=== PATIENT | female | born 1960 | race Caucasian/White ===

== ENCOUNTER 2016-09-23 07:04 | Day surgery (SDC) | payer MEDICARE, OTHER ==
[2016-09-21 09:26] VITALS: BMI 28.8
[~2016-09-23 07:04] MED LIST: LACTATED RINGERS 1,000 ML IV SCH
[2016-09-23 07:17] VITALS: TEMP 97.4
[2016-09-23] MEDS ORDERED: LIDOCAINE 1% INJ 10MG/ML (20 ML MDV) ONE (07:34)
[2016-09-23] MEDS ORDERED: PROPOFOL 10 MG/ML 20 ML VIAL IV ONE (07:34)
--- NOTE | 2016-09-23 07:47 | P.GSHP ---
History of Present Illness H&P Date: 09/23/16 Chief Complaint: GERD, dysphagia Is a 48-year-old female referred from Dr. George Wesley. Patient has had issues GERD and dysphagia. He was a presents EGD - Constitutional Constitutional: Reports as per HPI Past Medical History Past Medical History: Hypertension, Osteoarthritis (OA) Additional Past Medical History / Comment(s): HX OF DIVERTICULITIS ( HOSPITALIZED APR 2016), SCOLIOSIS, HX OF FX NECK (1989) WITH PINCHED NERVE WITH NUMBNESS IN HANDS & OCCASIONAL WEAKNESS IN HANDS., HAVING DIFFICULTY SWALLOWING. , STATES BLOOD BLISTER ON HER ARM. , STATES SNORES HEAVILY. History of Any Multi-Drug Resistant Organisms: None Reported Additional Past Surgical History / Comment(s): TUBAL RECONSTRUCTION (1985) Past Anesthesia/Blood Transfusion Reactions: No Reported Reaction Past Psychological History: No Psychological Hx Reported Smoking Status: Current every day smoker Past Alcohol Use History: Occasional Additional Past Alcohol Use History / Comment(s): SMOKES <1/2 PPD. SMOKED FOR APPROX 15 YEARS. QUIT FOR 20 YRS AND RESTARTED. DRINKS A 6 PACK WEEKLY. Past Drug Use History: None Reported - Past Family History Father Family Medical History: Cancer Additional Family Medical History / Comment(s): LUNG CANCER Medications and Allergies Home Medications Medication Instructions Recorded Confirmed Type Lisinopril [Zestril] 10 mg PO DAILY 09/21/16 09/23/16 History Allergies Allergy/AdvReac Type Severity Reaction Status Date / Time aspirin Allergy Unknown Swelling, Verified 09/21/16 09:12 Itching Penicillins Allergy Unknown STATES SHE Verified 09/21/16 09:12 FEELS WORSE. Surgical - Exam Vital Signs Temp Pulse Resp BP Pulse Ox 97.4 F L 75 14 115/80 96 09/23/16 07:16 09/23/16 07:16 09/23/16 07:16 09/23/16 07:16 09/23/16 07:16 - General well developed, no distress - Eyes PERRL - ENT normal pinna - Neck no masses - Respiratory normal expansion - Cardiovascular Rhythm: regular - Abdomen Abdomen: soft, non tender Assessment and Plan Plan: GERD, dysphagia. We'll perform EGD
--- NOTE | 2016-09-23 08:02 | P.OP ---
Date of Procedure: 09/23/16 Preoperative Diagnosis: GERD Dysphagia Postoperative Diagnosis: Antral gastritis Hiatal hernia Minimal esophagitis Procedure(s) Performed: EGD Anesthesia: MAC Surgeon: nAurag Simpson Pathology: other (Antrum, esophagus) Condition: stable Disposition: PACU Description of Procedure: The patient's placed on the endoscopy table in the lateral position. She received IV sedation. The gastroscope some placed oropharynx and passed into the esophagus and into the stomach. The scope was then placed through the pylorus. The first and second portion of the duodenum appeared normal. Scope was then brought back the antrum and this appeared minimally inflamed and a biopsies was performed. The scope was then retroflexed and there was a moderate size hiatal hernia. The GE junction was at 47 is. The distal esophagus appeared minimally inflamed a biopsies performed. The proximal esophagus appeared normal. Scope was withdrawn for patient.
[2016-09-23 08:08] VITALS: RESP 16
[2016-09-23 09:00] VITALS: BP 104/69; PULSE 74
== END 2016-09-23 08:58 | disposition home or self-care (01) ==
LOC: ORWHC2ENDO 07:04
PROVIDERS: ATTEND Surgery
DX: K29.70 Gastritis, unspecified, without bleeding (principal); K44.9 Diaphragmatic hernia without obstruction or gangrene; K20.9 Esophagitis, unspecified; I10 Essential (primary) hypertension; F17.200 Nicotine dependence, unspecified, uncomplicated; Z79.899 Other long term (current) drug therapy; Z88.0 Allergy status to penicillin; Z88.8 Allergy status to other drugs, medicaments and biological substances
CPT/HCPCS: 88305; 88342; 43239; J2001; J2704; 99153

== ENCOUNTER → 2016-11-17 | Outpatient (CLI) | payer MEDICARE, OTHER ==
[~2016-11-17] MED LIST changes: +DOBUTamine DRIP for NUC MED 500 MG in DEXTROSE/WATER 1 250ML.BAG IV ONE; +DOBUTamine DRIP for NUC MED 500 MG/250 ML BAG IV ONE; -LACTATED RINGERS 1,000 ML IV SCH
--- NOTE | 2016-11-17 11:41 | ECHOF ---
Referral Reason:I10 htn E78.2 mixed hyperlipiedmia MEASUREMENTS -------- HEIGHT: 157.5 cm WEIGHT: 68.0 kg BP: 96/65 RVIDd: 3.0 cm (< 3.3) IVSd: 1.1 cm (0.6 - 1.1) LVIDd: 4.5 cm (3.9 - 5.3) LVPWd: 1.2 cm (0.6 - 1.1) IVSs: 1.7 cm LVIDs: 2.8 cm LVPWs: 1.5 cm LA Diam: 3.1 cm (2.7 - 3.8) LAESV Index (A-L): 12.85 ml/m Ao Diam: 2.7 cm (2.0 - 3.7) AV Cusp: 1.9 cm (1.5 - 2.6) MV EXCURSION: 15.792 mm (> 18.000) MV EF SLOPE: 92 mm/s (70 - 150) EPSS: 0.2 cm MV E Andrew: 0.94 m/s MV DecT: 167 ms MV A Andrew: 0.89 m/s MV E/A Ratio: 1.07 RAP: 5.00 mmHg RVSP: 21.98 mmHg FINDINGS -------- Resting bradycardia (HR<60bpm). This was a technically good study. The left ventricular size is normal. There is borderline concentric left ventricular hypertrophy. Overall left ventricular systolic function is normal with, an EF between 60 - 65 %. The right ventricle is normal in size. Normal LA size by volume 22+/-6 ml/m2. The right atrium is normal in size. The aortic valve is trileaflet and appears structurally normal. Normal appearing mitral valve. No mitral regurgitation. Mild tricuspid regurgitation present. Right ventricular systolic pressure is normal at < 35 mmHg. The pulmonic valve is normal. The aortic root size is normal. Normal inferior vena cava with normal inspiratory collapse consistent with estimated right atrial pressure of 5 mmHg. There is no pericardial effusion. CONCLUSIONS -------- 1. Resting bradycardia (HR<60bpm). 2. Mild tricuspid regurgitation present. 3. Right ventricular systolic pressure is normal at < 35 mmHg. 4. The pulmonic valve is normal. 5. The aortic root size is normal. 6. Normal inferior vena cava with normal inspiratory collapse consistent with estimated right atrial pressure of 5 mmHg. 7. There is no pericardial effusion. 8. This was a technically good study. 9. The left ventricular size is normal. 10. There is borderline concentric left ventricular hypertrophy. 11. Overall left ventricular systolic function is normal with, an EF between 60 - 65 %. 12. The right ventricle is normal in size. 13. Normal LA size by volume 22+/-6 ml/m2. 14. The aortic valve is trileaflet and appears structurally normal. 15. Normal appearing mitral valve. WOOD TECHNOLOGIST: Anny Grewal RDCS
--- NOTE | 2016-11-17 12:49 | ECHOS ---
DATE OF SERVICE: 11/17/2016 AGE: 56Y SEX: F HT: 5'-1-/2" WT: 150 lbs. Protocol Les: Others: Dobutamine Stress Echo Stage: 4 Dur. of Exercise: 10:00 *Heart Rate Blood Pressure *Rest: 58 Rest: 96/65 * *Max. Achieved: 138 Maximum BP: 170/82 85% PMHR: - 100% PMHR: 162 *METS: - INDICATIONS: Hypertension. MEDICATIONS: Lisinopril, Prilosec, Lipitor. Patient was given dobutamine infusion according to the standard protocol. Peak heart rate of 138 was achieved. Maximum blood pressure of 170/82 mmHg is noted. Resting EKG shows normal sinus rhythm with normal NH interval and QRS duration and normal ST-T waves. No ST segment depression suggestive of ischemia is noted. Baseline echocardiographic images reveal a normal left ventricular chamber size with normal left ventricular systolic function at the peak dose of dobutamine infusion, normal increase in the wall thickness and contractility is noted. FINAL IMPRESSION: 1. This dobutamine stress echocardiographic study is negative for stress-induced ischemia. 2. EKG portion of the stress test is not suggestive of ischemia on patient's exercise.
== END ==
LOC: RADECHMAIN 08:22
PROVIDERS: ATTEND Family Medicine
DX: R00.1 Bradycardia, unspecified (principal); I07.1 Rheumatic tricuspid insufficiency; I51.7 Cardiomegaly; I10 Essential (primary) hypertension; E78.2 Mixed hyperlipidemia; Z68.24 Body mass index [BMI] 24.0-24.9, adult
CPT/HCPCS: 93017; 93306; 93350

== ENCOUNTER 2017-02-20 06:35 | Day surgery (SDC) | payer MEDICARE, OTHER ==
[2017-02-09 14:34] VITALS: BMI 27.8
[~2017-02-20 06:35] MED LIST changes: +DEXAMETHASONE SOD PHOSPHATE 10 MG/ML 1 ML VIAL IV ONE; -DOBUTamine DRIP for NUC MED 500 MG in DEXTROSE/WATER 1 250ML.BAG IV ONE; -DOBUTamine DRIP for NUC MED 500 MG/250 ML BAG IV ONE; +HEPARIN SODIUM,PORCINE 5,000 UNIT/ML 1 ML VIAL SQ ONE; +HYDROmorphone 1 MG/ML 1 ML SYRINGE IVP PRN; +LACTATED RINGERS 1,000 ML IV SCH; +LIDOCAINE 1% 20 ML VIAL (10MG/ML) FOR IV START INTRADERMA PRN; +SCOPOLAMINE 1.5MG/72HR PATCH TRANSDERM ONE; +ceFAZolin 2 GM in SODIUM CHLORIDE 0.9% 100 ML IVPB ONE
[2017-02-20] MEDS: ONDANSETRON 4 MG/2 ML VIAL IVP ONE ×2 (06:57→08:55)
--- NOTE | 2017-02-20 07:37 | P.GSHP ---
History of Present Illness H&P Date: 02/20/17 Chief Complaint: GERD This a 56-year-old female referred from Dr. Tania Wesley. The patient has had long-standing problems with reflux esophagitis. The patient underwent recent EGD is found have evidence of esophagitis. Patient has been well informed on the procedure of laparoscopic Jackie fundoplication. The patient is aware the risk of the conversion to the open procedure, risk of injury to the stomach, liver and spleen. The patient is also a risk of recurrent GERD and dysphagia symptoms. The patient understands there is a postoperative diet of full liquids for 2 weeks after surgery. Past Medical History Past Medical History: GERD/Reflux, Hyperlipidemia, Hypertension, Osteoarthritis (OA) Additional Past Medical History / Comment(s): STATES DYSPHAGIA, HX OF DIVERTICULITIS (HOSPITALIZED APR 2016), SCOLIOSIS, HX OF FX NECK (1989) WITH PINCHED NERVE WITH NUMBNESS IN HANDS & OCCASIONAL WEAKNESS IN HANDS. STATES HAS TORN LEFT SHOULDER ROTATOR CUFF History of Any Multi-Drug Resistant Organisms: None Reported Additional Past Surgical History / Comment(s): TUBAL RECONSTRUCTION (1985), EGD , COLONOSCOPY Past Anesthesia/Blood Transfusion Reactions: No Reported Reaction Past Psychological History: No Psychological Hx Reported Smoking Status: Never smoker Past Alcohol Use History: Heavy Additional Past Alcohol Use History / Comment(s): SMOKES <1/2 PPD. SMOKED FOR APPROX 15 YEARS. QUIT FOR 20 YRS AND RESTARTED. Past Drug Use History: Marijuana Additional Drug Use History / Comment(s): OCCASIONAL USE, INSTRUCED TO HOLD 24 HRS PRIOR TO PROCEDURE - Past Family History Father Family Medical History: Cancer Additional Family Medical History / Comment(s): LUNG CANCER Medications and Allergies Home Medications Medication Instructions Recorded Confirmed Type Lisinopril [Zestril] 10 mg PO DAILY 09/21/16 02/20/17 History Allergies Allergy/AdvReac Type Severity Reaction Status Date / Time aspirin Allergy Unknown Swelling, Verified 02/20/17 06:49 Itching Penicillins Allergy Unknown STATES SHE Verified 02/20/17 06:49 FEELS WORSE. Surgical - Exam Vital Signs Temp Pulse Resp BP Pulse Ox 98.3 F 78 16 131/75 98 02/20/17 06:48 02/20/17 06:48 02/20/17 06:48 02/20/17 06:48 02/20/17 06:48 - General well developed, no distress - Eyes PERRL - ENT normal pinna - Neck no masses - Respiratory normal expansion - Cardiovascular Rhythm: regular - Abdomen Abdomen: soft, non tender Assessment and Plan Plan: GERD. We'll perform laparoscopic Jackie fundoplication.
[2017-02-20] MEDS ORDERED: BUPIVACAIN-EPI 0.25%-1:200,000 30 ML VIAL SQ ONE (07:42)
[2017-02-20] MEDS ORDERED: fentaNYL (PF) 50 MCG/ML 2 ML AMP ONE (07:46)
[2017-02-20] MEDS ORDERED: ePHEDrine 50 MG/ML 1 ML AMP ONE (07:46)
[2017-02-20] MEDS ORDERED: NEOSTIGMINE 1 MG/ML 10 ML VIAL ONE (07:46)
[2017-02-20] MEDS ORDERED: LIDOCAINE 1% INJ 10MG/ML (20 ML MDV) ONE (07:46)
[2017-02-20] MEDS ORDERED: ROCURONIUM BROMIDE 10 MG/ML 10 ML VIAL IV ONE (07:46)
[2017-02-20] MEDS ORDERED: SUCCINYLCHOLINE CHLORIDE 100 MG/5 ML SYR IV ONE (07:46)
[2017-02-20] MEDS ORDERED: PROPOFOL 10 MG/ML 20 ML VIAL IV ONE (07:46)
[2017-02-20] MEDS ORDERED: GLYCOPYRROLATE 0.2 MG/ML 2 ML VIAL ONE (07:46)
[2017-02-20] MEDS ORDERED: MIDAZOLAM 2 MG/2 ML VIAL ONE (07:46)
--- NOTE | 2017-02-20 08:46 | P.OP ---
Date of Procedure: 02/20/17 Preoperative Diagnosis: GERD Postoperative Diagnosis: GERD Procedure(s) Performed: Laparoscopic Jackie fundoplication Implants: Anesthesia: NAYANA Surgeon: Anurag Simpson Estimated Blood Loss (ml): 5 Pathology: none sent Condition: stable Disposition: PACU Indications for Procedure: Operative Findings: Description of Procedure: The patient was placed on the operating table in the supine position. The patient received general anesthesia. And was placed in dorsal lithotomy position. The patient was prepped and draped in the usual sterile fashion. The skin incision sites were anesthetized with 1% local Xylocaine. The skin was incised in the left periumbilical area and then using a blade less 5 mm trocar under direct visualization panel cavity was entered. After adequate insufflation the laparoscope was then placed into the peritoneal cavity. Next a 5 mm trochars placed in the right epigastric position. Another 5 millimeter trocar the right lateral position. Another 5 millimeter trocar in the left lateral position a 5 mm trocar is placed in the left epigastric position. And then the initial 5 mm trocar was exchanged for a 10 mm trocar. The left lateral lobe liver was retracted. The hernia was seen. The crural defect was then dissected using the Harmonic scissors device. A 360 crural dissection was performed the esophagus stomach was reduced back into the peritoneal Cavity. The crural defect was then closed using 2-0 Ethibond suture. Next the fundus of the stomach was mobilized using the Paragon scissors device. and then a 58-Irish bougie dilator was placed oropharynx passed into the esophagus and stomach the fundal plication wrap was then performed by grasping the fundus posteriorly and bringing it around the esophagus and stomach fundoplication was then performed using 2-0 Ethibond suture. Care was taken that the fundal location rested over top of the intra-abdominal esophagus. There was no injury seen to the stomach or esophagus. The dilator was then withdrawn. The abdomen was irrigated there is no bleeding seen. The trochars were then withdrawn and then skin incision sites were closed using 3-0 Monocryl suture Steri-Strips are applied. Patient thought procedure well and sent to recovery room in stable condition.
[2017-02-20] MEDS ORDERED: KETOROLAC 30 MG/ML 1 ML VIAL IVP ONE (09:01)
[2017-02-20] MEDS: D5-0.45% NACL WITH KCL 20MEQ/L 1,000 ML IV SCH ×2 (11:26→18:42)
[2017-02-20] MEDS ORDERED: HYDROmorphone 1 MG/ML 1 ML SYRINGE IVP PRN (11:31)
[2017-02-20] MEDS: ENOXAPARIN 40 MG/0.4 ML SYRINGE SQ SCH (11:32)
--- NOTE | 2017-02-20 15:50 | FL ---
EXAMINATION TYPE: FL esophagus cervic/pharynx DATE OF EXAM ORDERED: 02/20/2017 3:26 PM HISTORY: Same day Abdulkadir fundoplication. COMPARISON: None. FINDINGS: The patient drank Omnipaque with ease. There is prompt egress of contrast from the esophag us into the stomach. The ligament of Treitz is in the normal location. There is no evidence of extrav asation or significant free air. IMPRESSION: STATUS POST SAME-DAY ABDULKADIR FUNDOPLICATION.
--- NOTE | 2017-02-20 19:58 | CONS ---
DATE OF CONSULTATION: REASON FOR CONSULTATION: Recommendations regarding antihypertensive medications and prevention of perioperative complications. The patient is a very pleasant 56-year-old female who came in for Jackie fundoplication. Patient underwent surgery. Patient is clinically doing well. The patient is still nauseous at this point of time. Patient does have a history of hypertension, blood pressure is low, which is expected around the perioperative time period, because of which I am holding her antihypertensive medication. The patient does not have any signs or symptoms of infection. Denies any cough or runny nose. Did not pass gas yet but has been burping at this time. REVIEW OF SYSTEMS: CARDIOVASCULAR: No chest pain, no orthopnea, no PND, no palpitations. PULMONARY: Denied any shortness of breath. No cough or hemoptysis. GASTROINTESTINAL: No diarrhea, nausea or vomiting. No abdominal pain. Normoactive bowel sounds. NEUROLOGIC: No headaches, no weakness, no numbness. PAST MEDICAL HISTORY: Gastroesophageal reflux disease, hyperlipidemia, hypertension, osteoarthritis. The patient does smoke a half pack per day. Denied any alcohol abuse. Occasional use of marijuana. FAMILY HISTORY: Significant for lung cancer. Home medications: 1. Lisinopril. 2. Acetaminophen. 3. Hydrocodone. 4. Docusate. ALLERGIES: ASPIRIN, PENICILLIN. PHYSICAL EXAMINATION: VITAL SIGNS: Temperature 97, pulse of 48, respiratory rate of 90, blood pressure 105/61, saturating at 95% on room air. GENERAL: The patient is alert and oriented x3, not in any acute distress. Well developed, well nourished. HEENT: Pupils are round and equally reacting to light. EOMI. No scleral icterus. No conjunctival pallor. Normocephalic, atraumatic. No pharyngeal erythema. No thyromegaly. CARDIOVASCULAR: S1 and S2 present. No murmurs, rubs, or gallops. PULMONARY: Chest is clear to auscultation, no wheezing or crackles. ABDOMEN: Soft, nontender, nondistended, normoactive bowel sounds. No palpable organomegaly. MUSCULOSKELETAL: No joint swelling or deformity. EXTREMITIES: No cyanosis, clubbing, or pedal edema. NEUROLOGICAL: Gross neurological examination did not reveal any focal deficits. SKIN: No rashes. LABORATORY DATA: None available. ASSESSMENT AND PLAN: 1. Status post fundoplication. Pain management and DVT prophylaxis per primary service. 2. Hypertension. Hold off lisinopril because of concern of perioperative hypotension, which is pretty common. Reassessment tomorrow before discharge to see if she can continue her lisinopril upon discharge. 3. Nicotine abuse. Counseling was provided regarding that. Thank you for letting me participate in this patient's care. Patient will be followed by Dr. Wesley from tomorrow.
[2017-02-21] MEDS: HYDROmorphone 1 MG/ML 1 ML SYRINGE IVP PRN ×2 (00:37→08:37)
[2017-02-21] MEDS: D5-0.45% NACL WITH KCL 20MEQ/L 1,000 ML IV SCH (02:47)
[2017-02-21 08:19] VITALS: BP 117/70; PULSE 64; RESP 19; TEMP 97
[2017-02-21] MEDS: ENOXAPARIN 40 MG/0.4 ML SYRINGE SQ SCH (08:37)
--- NOTE | 2017-02-21 09:27 | P.DS ---
Providers Date of admission: 02/20/2017 Expected date of discharge: 02/21/17 Attending physician: Anurag Simpson Consults: 02/20/17 08:46 Consult Physician Routine Consulting Provider: Ella Wesley Consult Reason/Comments: Medical management Do you want consulting provider notified?: Yes Primary care physician: [place] [facility] Course: This a 48-year-old female who underwent laparoscopic Jackie fundoplication on . Patient did well postoperative. Please see chart for details. Procedures: Laparoscopic Jackie fundal plication Patient Condition at Discharge: Good Plan - Discharge Summary New Discharge Prescriptions: New Docusate [Colace] 100 mg PO BID #20 capsule HYDROcodone/APAP 7.5-325MG [[place] 7.5] 1 each PO Q4H PRN #60 tab PRN Reason: Pain No Action Lisinopril [Zestril] 10 mg PO DAILY Discharge Medication List Lisinopril [Zestril] 10 mg PO DAILY 09/21/16 [History] Docusate [Colace] 100 mg PO BID #20 capsule 02/20/17 [Rx] HYDROcodone/APAP 7.5-325MG [[place] 7.5] 1 each PO Q4H PRN #60 tab 02/20/17 [Rx] Follow up Appointment(s)/Referral(s): Anurag Simpson MD [STAFF PHYSICIAN] - 1 Week Patient Instructions/Handouts: *Surgery [facility] - Scopalamine Patch Instructions
[2017-02-21] MEDS ORDERED: HYDROcodone/APAP 7.5-325MG 1 EACH TAB PO PRN (11:55)
--- NOTE | 2017-02-21 16:59 | PN ---
DATE OF SERVICE: 02/21/2017 This 56-year-old woman who was admitted after fundoplication for GERD is being closely monitored. No chest pain or palpitation. No fever. On exam, alert and oriented x3. Pulse is 66, blood pressure 116/84, respirations 18, temperature 97.6, pulse ox 98% on room air. HEENT: Conjunctivae normal. NECK: No jugular venous distention. CARDIOVASCULAR: S1, S2 muffled. RESPIRATORY: Breath sounds diminished at the bases. No rhonchi. No crackles. ABDOMEN: Soft, status post surgery. LEGS: No edema. No swelling. CENTRAL NERVOUS SYSTEM: No focal deficits. LABS: Not available. ASSESSMENT: 1. Status post laparoscopic Jackie fundoplication for gastroesophageal reflux disease. 2. Hypertension, history. 3. History of nicotine dependence. 4. History of gastroesophageal reflux disease. 5. Hyperlipidemia. 6. History of degenerative joint disease. RECOMMENDATIONS AND DISCUSSION: In this 56-year-old woman who presented after surgery at this time, I recommend to continue current medications. Continue symptomatic treatment. I recommend to resuming the home medications. Follow closely with Dr. Ortiz who is the primary physician. The rest of the recommendations per surgery. Further recommendations to follow. Thank you Dr. Simpson.
== END 2017-02-21 13:15 | disposition home or self-care (01) ==
LOC: OR 06:35 → 6PED 08:51 → OR 02-21 13:15
PROVIDERS: ATTEND Surgery
DX: K21.0 Gastro-esophageal reflux disease with esophagitis (principal); E78.5 Hyperlipidemia, unspecified; I10 Essential (primary) hypertension; F17.200 Nicotine dependence, unspecified, uncomplicated; Z88.6 Allergy status to analgesic agent; Z88.0 Allergy status to penicillin; Z79.899 Other long term (current) drug therapy
CPT/HCPCS: 74210; 43280; J2250; J1644; J1100; J2710; Q9967; J0690; J2405; J2001; J1650 ×2; J3010; J1885; J1170 ×2; J0330; J2704

== ENCOUNTER 2017-03-05 11:17 | Inpatient (IN) | payer MEDICARE, OTHER ==
[2017-03-05] MEDS ORDERED: SODIUM CHLORIDE 0.9% 1,000 ML IV STA ×2 (12:02)
[2017-03-05] MEDS ORDERED: NITROGLYCERIN SL TABS 0.4 MG TAB SUBLINGUAL STA (12:02)
[2017-03-05] MEDS ORDERED: IOHEXOL 350 MG/ML 25 ML BOTTLE (ORAL USE) PO PRN (12:06)
[2017-03-05] MEDS ORDERED: FAMOTIDINE 20 MG/2 ML VIAL IV STA (12:06)
[2017-03-05] MEDS ORDERED: ONDANSETRON 4 MG/2 ML VIAL IVP STA (12:06)
[2017-03-05] MEDS ORDERED: HYDROmorphone 1 MG/ML 1 ML SYRINGE IVP STA ×2 (12:06→14:29)
[2017-03-05] MEDS ORDERED: RX INFO: IV CONTRAST WAS GIVEN 1 EACH MISC MISCELLANE PRN (12:06)
--- NOTE | 2017-03-05 12:13 | ED ---
General Adult HPI - General Chief complaint: Chest Pain Stated complaint: chest pain,nausea Time Seen by Provider: 03/05/17 11:49 Source: patient, RN notes reviewed Mode of arrival: ambulatory Limitations: no limitations - History of Present Illness Initial comments: Patient is a pleasant 56-year-old female presenting to the emergency Department with left-sided chest discomfort. Patient did have a Jackie fundoplication done 2 weeks ago. Patient started with chest discomfort last night and has progressed since that time. Discomfort is mostly left lateral lower chest and posterior. There is some beneath the left breast as well. No significant abdominal discomfort. Patient has not yet tolerated solid foods since her surgery. Patient is having nausea without emesis. Patient has difficulty swallowing pills. - Related Data Home Medications Medication Instructions Recorded Confirmed Lisinopril [Zestril] 10 mg PO DAILY 09/21/16 03/05/17 HYDROcodone/APAP 7.5-325MG [[place] 1 tab PO Q4H PRN 03/05/17 03/05/17 7.5] Allergies Allergy/AdvReac Type Severity Reaction Status Date / Time aspirin Allergy Unknown Swelling, Verified 03/05/17 11:36 Itching Penicillins Allergy Unknown STATES SHE Verified 03/05/17 11:36 FEELS WORSE. Review of Systems ROS Statement: Those systems with pertinent positive or pertinent negative responses have been documented in the HPI. ROS Other: All systems not noted in ROS Statement are negative. Constitutional: Denies: fever Eyes: Denies: eye pain ENT: Denies: ear pain Respiratory: Denies: cough, dyspnea Cardiovascular: Reports: chest pain Endocrine: Denies: fatigue Gastrointestinal: Reports: nausea. Denies: abdominal pain Genitourinary: Denies: urgency Musculoskeletal: Reports: back pain (Left thorax) Skin: Denies: rash Past Medical History Past Medical History: GERD/Reflux, Hyperlipidemia, Hypertension, Osteoarthritis (OA) Additional Past Medical History / Comment(s): STATES DYSPHAGIA, HX OF DIVERTICULITIS (HOSPITALIZED APR 2016), SCOLIOSIS, HX OF FX NECK (1989) WITH PINCHED NERVE WITH NUMBNESS IN HANDS & OCCASIONAL WEAKNESS IN HANDS. STATES HAS TORN LEFT SHOULDER ROTATOR CUFF History of Any Multi-Drug Resistant Organisms: None Reported Past Surgical History: Hernia Repair Additional Past Surgical History / Comment(s): TUBAL RECONSTRUCTION (1985), EGD , COLONOSCOPY, HIATAL HERNIA REPAIR 2017 Past Anesthesia/Blood Transfusion Reactions: No Reported Reaction Past Psychological History: No Psychological Hx Reported Smoking Status: Current every day smoker Past Alcohol Use History: Heavy Past Drug Use History: Marijuana - Past Family History Father Family Medical History: Cancer Additional Family Medical History / Comment(s): LUNG CANCER General Exam Limitations: no limitations General appearance: alert, other (Patient does appear uncomfortable) Head exam: Present: atraumatic Eye exam: Present: normal appearance, PERRL ENT exam: Present: normal oropharynx Neck exam: Present: normal inspection Respiratory exam: Present: normal lung sounds bilaterally, chest wall tenderness (No significant anterior tenderness. There is lateral and posterior rib tenderness.) Cardiovascular Exam: Present: regular rate, normal rhythm Expanded Peripheral pulses: 2+: Dorsalis Pedis (R), Dorsalis Pedis (L) GI/Abdominal exam: Present: soft, normal bowel sounds. Absent: distended, tenderness, guarding, rebound, rigid, pulsatile mass Extremities exam: Present: normal inspection Back exam: Present: tenderness (Left lower ribs) Neurological exam: Present: alert Psychiatric exam: Present: normal affect, normal mood Skin exam: Present: normal color Course Vital Signs 03/05/17 03/05/17 03/05/17 11:33 11:39 12:25 Temperature 97.5 F L Pulse Rate 64 64 59 L Respiratory 20 22 22 Rate Blood Pressure 212/109 185/110 172/99 O2 Sat by Pulse 100 100 100 Oximetry 03/05/17 03/05/17 03/05/17 13:33 13:57 15:02 Temperature 97.4 F L Pulse Rate 62 56 L Respiratory 20 15 Rate Blood Pressure 189/89 203/99 158/94 O2 Sat by Pulse 100 92 L Oximetry EKG Findings - EKG Comments: EKG Findings:: Normal sinus rhythm 61. AK 140. QRS 84. QT 454. QTC 457. Normal axis. Normal QRS. Normal ST-T. Medical Decision Making - Medical Decision Making Patient reexamined and having continued discomfort. Case was discussed with Dr. Phelan, covering for Dr. Villar who feels symptoms are more medical. Case discussed with Dr. walker, who will admit for hospital call. Patient believes she has had Toradol before without problems. - Lab Data Result diagrams: 03/05/17 11:45 03/05/17 11:45 Lab Results 03/05/17 03/05/17 03/05/17 Range/Units 11:45 11:45 11:45 WBC 7.3 (3.8-10.6) k/uL RBC 4.53 (3.80-5.40) m/uL Hgb 14.2 (11.4-16.0) gm/dL Hct 42.6 (34.0-46.0) % MCV 93.9 (80.0-100.0) fL MCH 31.4 (25.0-35.0) pg MCHC 33.4 (31.0-37.0) g/dL RDW 12.6 (11.5-15.5) % Plt Count 394 (150-450) k/uL Neutrophils % 67 % Lymphocytes % 20 % Monocytes % 5 % Eosinophils % 5 % Basophils % 1 % Neutrophils # 4.8 (1.3-7.7) k/uL Lymphocytes # 1.5 (1.0-4.8) k/uL Monocytes # 0.4 (0-1.0) k/uL Eosinophils # 0.4 (0-0.7) k/uL Basophils # 0.0 (0-0.2) k/uL PT (9.0-12.0) sec INR (<1.1) APTT (22.0-30.0) sec Sodium 141 (137-145) mmol/L Potassium 4.1 (3.5-5.1) mmol/L Chloride 107 (98-107) mmol/L Carbon Dioxide 22 (22-30) mmol/L Anion Gap 12 mmol/L BUN 10 (7-17) mg/dL Creatinine 0.70 (0.52-1.04) mg/dL Est GFR (MDRD) Af Amer >60 (>60 ml/min/1.73 sqM) Est GFR (MDRD) Non-Af >60 (>60 ml/min/1.73 sqM) Glucose 92 (74-99) mg/dL Calcium 9.9 (8.4-10.2) mg/dL Magnesium 2.0 (1.6-2.3) mg/dL Total Bilirubin 0.4 (0.2-1.3) mg/dL AST 34 (14-36) U/L ALT 53 H (9-52) U/L Alkaline Phosphatase 84 (38-126) U/L Total Creatine Kinase 54 (30-135) U/L CK-MB (CK-2) 0.7 (0.0-2.4) ng/mL CK-MB (CK-2) Rel Index 1.3 Troponin I <0.012 (0.000-0.034) ng/mL Total Protein 6.9 (6.3-8.2) g/dL Albumin 4.3 (3.5-5.0) g/dL Amylase 52 (30-110) U/L Lipase 116 (23-300) U/L 03/05/17 Range/Units 11:45 WBC (3.8-10.6) k/uL RBC (3.80-5.40) m/uL Hgb (11.4-16.0) gm/dL Hct (34.0-46.0) % MCV (80.0-100.0) fL MCH (25.0-35.0) pg MCHC (31.0-37.0) g/dL RDW (11.5-15.5) % Plt Count (150-450) k/uL Neutrophils % % Lymphocytes % % Monocytes % % Eosinophils % % Basophils % % Neutrophils # (1.3-7.7) k/uL Lymphocytes # (1.0-4.8) k/uL Monocytes # (0-1.0) k/uL Eosinophils # (0-0.7) k/uL Basophils # (0-0.2) k/uL PT 10.9 (9.0-12.0) sec INR 1.1 (<1.1) APTT 26.0 (22.0-30.0) sec Sodium (137-145) mmol/L Potassium (3.5-5.1) mmol/L Chloride (98-107) mmol/L Carbon Dioxide (22-30) mmol/L Anion Gap mmol/L BUN (7-17) mg/dL Creatinine (0.52-1.04) mg/dL Est GFR (MDRD) Af Amer (>60 ml/min/1.73 sqM) Est GFR (MDRD) Non-Af (>60 ml/min/1.73 sqM) Glucose (74-99) mg/dL Calcium (8.4-10.2) mg/dL Magnesium (1.6-2.3) mg/dL Total Bilirubin (0.2-1.3) mg/dL AST (14-36) U/L ALT (9-52) U/L Alkaline Phosphatase (38-126) U/L Total Creatine Kinase (30-135) U/L CK-MB (CK-2) (0.0-2.4) ng/mL CK-MB (CK-2) Rel Index Troponin I (0.000-0.034) ng/mL Total Protein (6.3-8.2) g/dL Albumin (3.5-5.0) g/dL Amylase (30-110) U/L Lipase (23-300) U/L - Radiology Data Radiology results: report reviewed (Computed tomography scan of the chest shows no evidence of pulmonary embolism. Computed tomography scan of the abdomen and pelvis shows no acute process.) Disposition Clinical Impression: Chest pain, Hypertension Disposition: ADMITTED IP TO THIS [facility] Referrals: Ekaterina Girard MD [Primary Care Provider] - 1-2 days
[2017-03-05 12:36] LABS: Basophils % (A) 1 %; CH 32.5; CHCM 34.8; Eosinophils # (A) 0.4 k/uL (0-0.7); Eosinophils % (A) 5 %; HCT 42.6 % (34.0-46.0); HGB 14.2 gm/dL (11.4-16.0); Luc # (Auto) 0.19; Luc % (Auto) 3; Lymphocytes # (A) 1.5 k/uL (1.0-4.8); Lymphocytes % (A) 20 %; MCH 31.4 pg (25.0-35.0); MCHC 33.4 g/dL (31.0-37.0); MCV 93.9 fL (80.0-100.0); Mean Platelet Volume 6.7; Monocytes # (A) 0.4 k/uL (0-1.0); Monocytes % (A) 5 %; Neutrophils # (A) 4.8 k/uL (1.3-7.7); Neutrophils % (A) 67 %; RBC 4.53 m/uL (3.80-5.40); RDW 12.6 % (11.5-15.5); WBC 7.3 k/uL (3.8-10.6); WBC (Perox) 7.13
[2017-03-05 12:48] LABS: INR 1.1 (<1.1); Prothrombin Time 10.9 sec (9.0-12.0)
[2017-03-05 12:49] LABS: ALT 53 U/L (9-52); AST 34 U/L (14-36); Alkaline Phosphatase 84 U/L (38-126); Amylase 52 U/L (30-110); Anion Gap 12 mmol/L; Blood Urea Nitrogen 10 mg/dL (7-17); Calcium 9.9 mg/dL (8.4-10.2); Carbon Dioxide 22 mmol/L (22-30); Chloride 107 mmol/L (98-107); Glucose 92 mg/dL (74-99); Non-African American GFR(MDRD) >60 (>60 ml/min/1.73 sqM); Potassium 4.1 mmol/L (3.5-5.1); Sodium 141 mmol/L (137-145); Total Bilirubin 0.4 mg/dL (0.2-1.3); Total Protein 6.9 g/dL (6.3-8.2)
[2017-03-05 12:58] LABS: Creatine Kinase 54 U/L (30-135)
[2017-03-05 13:11] LABS: Creatine Kinase MB 0.7 ng/mL (0.0-2.4); Troponin I <0.012 ng/mL (0.000-0.034)
--- NOTE | 2017-03-05 14:40 | CT ---
CT CHEST FOR PULMONARY EMBOLISM. EXAMINATION TYPE: CT angio chest DATE OF EXAM: 03/05/2017 INDICATION: Severe back pain, LUQ pain CT DLP: 1600.1 (CTA chest and CT abd pelvis) mGycm, Automated exposure control for dose reduction was used. CONTRAST: Patient injected with 100 mL of Omnipaque 350. COMPARISON: NONE TECHNIQUE: CT of the chest is performed on a spiral scan at 2 mm thick sections. Study is performed with intravenous contrast timed for evaluation for pulmonary embolism. This will limit additional po rtions of the evaluation. 3-D MIP images reconstructed by the technologist are reviewed on the compu ter in the coronal and sagittal planes. FINDINGS: No persistent filling defects are evident to suggest an acute pulmonary embolism. No mediastinal or hilar adenopathy enlarged by CT criteria is evident. The ascending aorta diameter at the level of the main pulmonary artery is 3.3 cm. The main pulmonary artery diameter at the bifur cation is 2.0 cm. Lung windows are clear. Limited CT section through the upper abdomen are unremarkable. IMPRESSIONS: 1. No acute pulmonary embolism.
--- NOTE | 2017-03-05 14:53 | CT ---
EXAMINATION TYPE: CT abdomen pelvis w con DATE OF EXAM: 03/05/2017 COMPARISON: None INDICATION: Severe back pain, LUQ pain DLP: 1600.1 (CTA chest and CT abd pelvis) mGycm, Automated exposure control for dose reduction was us ed. CONTRAST: 100 mL of Omnipaque 350. Study performed with Oral Contrast TECHNIQUE: Axial images were obtained from above the diaphragm to the pubic rami in the axial plane a t 5 mm thick sections. Reconstructed images are reviewed on the computer in the coronal plane. FINDINGS: Limited CT sections are obtained the lung bases. The lung bases are clear. CT ABDOMEN: Patient is on fundoplication is evident in the epigastric region. Liver: Normal Spleen: Normal Pancreas: Normal Adrenal glands: The adrenal glands are normal. Gallbladder: Normal Kidneys: No masses are evident. No hydronephrosis is present. No cysts are present. Delayed images were obtained through the kidneys, which remain unremarkable. Aorta: Vascular calcification is within the aorta. Inferior vena cava: Normal. CT PELVIS: Loops of bowel within the abdomen and pelvis are normal. Diverticular changes are within the sigm oid colon. No acute diverticulitis is evident. Appendix: Normal as visualized. Urinary bladder: Normal. Genitourinary structures: Uterus is normal. Adnexal regions are clear. No free fluid is within the pe lvis. Osseous structures: No suspicious lytic or sclerotic lesions. IMPRESSIONS: 1. No acute process CT abdomen pelvis. 2. Sigmoid diverticulosis without acute diverticulitis.
[2017-03-05] MEDS ORDERED: ENALAPRILAT 1.25 MG/ML 1 ML VIAL IVP STA (16:02)
[2017-03-05] MEDS ORDERED: KETOROLAC 30 MG/ML 1 ML VIAL IVP STA (16:15)
[2017-03-05] MEDS ORDERED: NITROGLYCERIN SL TABS 0.4 MG TAB SUBLINGUAL PRN (16:16)
[2017-03-05] MEDS ORDERED: hydrALAZINE HCL 20 MG/ML 1 ML VIAL IVP STA (16:22)
[2017-03-05 17:12] VITALS: BMI 27.3
[2017-03-05] MEDS: MORPHINE SULFATE 4 MG/ML SYRINGE IVP PRN ×2 (17:22→21:44)
[2017-03-05] MEDS: SODIUM CHLORIDE 0.9% 1,000 ML IV SCH (17:24)
[2017-03-05] MEDS: NITROGLYCERIN OINT 1 INCH/GM PACKET TOPICAL SCH (17:35)
[2017-03-05 18:33] LABS: Creatine Kinase 61 U/L (30-135)
[2017-03-05 18:47] LABS: Creatine Kinase MB 0.8 ng/mL (0.0-2.4); Troponin I <0.012 ng/mL (0.000-0.034)
[2017-03-05] MEDS ORDERED: ENALAPRILAT 1.25 MG/ML 1 ML VIAL IVP PRN (20:26)
[2017-03-05] MEDS: ONDANSETRON 4 MG/2 ML VIAL IVP PRN (20:34)
[2017-03-05] MEDS: HYDROcodone/APAP 7.5-325MG 1 EACH TAB PO PRN (20:35)
[2017-03-05] MEDS ORDERED: HYDROmorphone 1 MG/ML 1 ML SYRINGE IVP PRN (21:59)
[2017-03-06 00:12] LABS: Creatine Kinase MB 0.8 ng/mL (0.0-2.4); Troponin I 0.02 ng/mL (0.000-0.034)
[2017-03-06] MEDS: SODIUM CHLORIDE 0.9% 1,000 ML IV SCH ×2 (00:48→11:07)
[2017-03-06] MEDS: NITROGLYCERIN OINT 1 INCH/GM PACKET TOPICAL SCH ×2 (00:48→06:19)
[2017-03-06] MEDS: HYDROmorphone 2 MG/ML 1 ML SYRINGE IVP PRN ×2 (04:05→08:12)
[2017-03-06 06:28] LABS: Basophils % (A) 0 %; CH 32.5; CHCM 34.9; Eosinophils # (A) 0.2 k/uL (0-0.7); Eosinophils % (A) 2 %; HCT 37.5 % (34.0-46.0); HGB 12.4 gm/dL (11.4-16.0); Luc % (Auto) 2; Lymphocytes # (A) 1.3 k/uL (1.0-4.8); Lymphocytes % (A) 17 %; MCH 30.8 pg (25.0-35.0); MCV 93.4 fL (80.0-100.0); Mean Platelet Volume 6.7; Monocytes # (A) 0.5 k/uL (0-1.0); Monocytes % (A) 6 %; Neutrophils # (A) 5.9 k/uL (1.3-7.7); Neutrophils % (A) 73 %; RBC 4.01 m/uL (3.80-5.40); RDW 12.3 % (11.5-15.5); WBC 8.1 k/uL (3.8-10.6)
[2017-03-06 06:35] LABS: Anion Gap 10 mmol/L; Blood Urea Nitrogen 8 mg/dL (7-17); Calcium 9.1 mg/dL (8.4-10.2); Carbon Dioxide 22 mmol/L (22-30); Chloride 105 mmol/L (98-107); Cholesterol 172 mg/dL (<200); Glucose 100 mg/dL (74-99); HDL Cholesterol 50 mg/dL (40-60); Non-African American GFR(MDRD) >60 (>60 ml/min/1.73 sqM); Potassium 4.1 mmol/L (3.5-5.1); Sodium 137 mmol/L (137-145); Triglycerides 138 mg/dL (<150)
[2017-03-06] MEDS: ENOXAPARIN 40 MG/0.4 ML SYRINGE SQ SCH (08:11)
[2017-03-06] MEDS: LISINOPRIL 10 MG TAB PO SCH (08:11)
[2017-03-06] MEDS: HYDROcodone/APAP 7.5-325MG 1 EACH TAB PO PRN ×4 (08:12→20:15)
[2017-03-06] MEDS: PANTOPRAZOLE 40 MG/10 ML VIAL IVP SCH (08:13)
--- NOTE | 2017-03-06 09:04 | P.CRDCN ---
History of Present Illness Consult date: 03/06/17 Requesting physician: Dejon Bartlett Consult reason: chest pain Chief complaint: Chest pain, difficulty swallowing, nausea History of present illness: This is a 56-year-old female with history of hypertension, hyperlipidemia, nicotine dependence, who recently underwent Jackie fundoplication to 2 weeks ago, she presents to the hospital with symptoms of pain beneath her left breast area that radiates around to her back. She also has associated difficulty in swallowing and nausea. She states that overall she was feeling well postoperatively, the symptoms started approximately 2 days ago. Patient did have a stress test performed by way of dobutamine echo in November of this year which did not reveal any evidence of reversible ischemia. An echocardiogram with Doppler study was also performed at that time which revealed an ejection fraction of 60-65%. EKG on arrival here showed a normal sinus rhythm with no acute changes. CAT scan of the abdomen and pelvis did not reveal any acute process. CTA of the chest did not reveal any evidence of pulmonary embolism. Blood pressure on arrival here to 12/109, heart rate in the 60s, 100% on room air. Laboratory data, CBC normal. Potassium 4.1, BUN 8, creatinine 0.7. AST 34, ALT 53, alk phos 84. Troponin 0.012, 0.012, 0.020. Blood pressure this morning is 22/80 with a heart rate in the 70s. Patient continues to have some difficulty in swallowing and associated nausea. Past Medical History Past Medical History: GERD/Reflux, Hyperlipidemia, Hypertension, Osteoarthritis (OA) Additional Past Medical History / Comment(s): STATES DYSPHAGIA, HX OF DIVERTICULITIS (HOSPITALIZED APR 2016), SCOLIOSIS, HX OF FX NECK (1989) WITH PINCHED NERVE WITH NUMBNESS IN HANDS & OCCASIONAL WEAKNESS IN HANDS. STATES HAS TORN LEFT SHOULDER ROTATOR CUFF History of Any Multi-Drug Resistant Organisms: None Reported Past Surgical History: Hernia Repair Additional Past Surgical History / Comment(s): TUBAL RECONSTRUCTION (1985), EGD , COLONOSCOPY, HIATAL HERNIA REPAIR 2016 Past Anesthesia/Blood Transfusion Reactions: No Reported Reaction Past Psychological History: No Psychological Hx Reported Smoking Status: Current every day smoker Past Alcohol Use History: Heavy Past Drug Use History: Marijuana - Past Family History Father Family Medical History: Cancer Additional Family Medical History / Comment(s): LUNG CANCER Medications and Allergies Home Medications Medication Instructions Recorded Confirmed Type Lisinopril [Zestril] 10 mg PO DAILY 09/21/16 03/05/17 History HYDROcodone/APAP 7.5-325MG [[place] [address] 1 tab PO Q4H PRN 03/05/17 03/05/17 History 7.5] Allergies Allergy/AdvReac Type Severity Reaction Status Date / Time aspirin Allergy Unknown Swelling, Verified 03/05/17 11:36 Itching Penicillins Allergy Unknown STATES SHE Verified 03/05/17 11:36 FEELS WORSE. Physical Exam Vitals: Vital Signs Temp Pulse Pulse Resp BP BP Pulse Ox 03/06/17 04:00 97.2 F L 76 18 122/81 98 03/06/17 00:00 96.9 F L 67 16 144/85 97 03/05/17 20:00 96.8 F L 62 16 158/81 99 03/05/17 16:44 97.3 F L 70 18 193/86 99 03/05/17 16:39 97.1 F L 65 18 161/89 95 03/05/17 16:16 96 03/05/17 15:02 97.4 F L 56 L 15 158/94 92 L 03/05/17 13:57 203/99 03/05/17 13:33 62 20 189/89 100 03/05/17 12:25 59 L 22 172/99 100 03/05/17 11:39 64 22 185/110 100 03/05/17 11:33 97.5 F L 64 20 212/109 100 Intake and Output 03/05/17 03/06/17 03/06/17 22:59 06:59 14:59 Intake Total 120 Balance 120 Intake: Intake, IV Titration 120 Amount Sodium Chloride 0.9% 1, 120 000 ml @ 120 mls/hr IV . Q8H20M [facility] Rx#:[id number] Other: Voiding Method Toilet Toilet # Voids 2 0 Weight 65.77 kg 65.1 kg PHYSICAL EXAMINATION: HEENT: Head is atraumatic, normocephalic. Pupils equal, round. Neck is supple. There is no elevated jugular venous pressure. HEART EXAMINATION: Heart S1, S2 normal. No murmur or gallop heard. CHEST EXAMINATION: Lungs are clear to auscultation and precussion. No chest wall tenderness is noted on palpation or with deep breathing. ABDOMEN: Soft, nontender. Bowel sounds are heard. No organomegaly noted. EXTREMITIES: 2+ peripheral pulses with no evidence of peripheral edema and no calf tenderness noted. NEUROLOGIC [patient is awake, alert and oriented -3.] . Results 03/06/17 05:48 03/06/17 05:45 Cardiac Enzymes 03/05/17 03/05/17 03/05/17 Range/Units 11:45 11:45 18:02 AST 34 (14-36) U/L CK-MB (CK-2) 0.7 0.8 (0.0-2.4) ng/mL Troponin I <0.012 <0.012 (0.000-0.034) ng/mL 03/05/17 Range/Units 23:01 AST (14-36) U/L CK-MB (CK-2) 0.8 (0.0-2.4) ng/mL Troponin I 0.020 (0.000-0.034) ng/mL Coagulation 03/05/17 Range/Units 11:45 PT 10.9 (9.0-12.0) sec APTT 26.0 (22.0-30.0) sec Lipids 03/06/17 Range/Units 05:45 Triglycerides 138 (<150) mg/dL Cholesterol 172 (<200) mg/dL HDL Cholesterol 50 (40-60) mg/dL CBC 03/05/17 03/06/17 Range/Units 11:45 05:48 WBC 7.3 8.1 (3.8-10.6) k/uL RBC 4.53 4.01 (3.80-5.40) m/uL Hgb 14.2 12.4 (11.4-16.0) gm/dL Hct 42.6 37.5 (34.0-46.0) % Plt Count 394 377 (150-450) k/uL Comprehensive Metabolic Panel 03/05/17 03/06/17 Range/Units 11:45 05:45 Sodium 141 137 (137-145) mmol/L Potassium 4.1 4.1 (3.5-5.1) mmol/L Chloride 107 105 (98-107) mmol/L Carbon Dioxide 22 22 (22-30) mmol/L BUN 10 8 (7-17) mg/dL Creatinine 0.70 0.70 (0.52-1.04) mg/dL Glucose 92 100 H (74-99) mg/dL Calcium 9.9 9.1 (8.4-10.2) mg/dL AST 34 (14-36) U/L ALT 53 H (9-52) U/L Alkaline Phosphatase 84 (38-126) U/L Total Protein 6.9 (6.3-8.2) g/dL Albumin 4.3 (3.5-5.0) g/dL Current Medications Generic Name Dose Route Start Last Admin Trade Name Freq PRN Reason Stop Dose Admin Hydrocodone Bitart/Acetaminophen 1 each 03/05/17 20:21 03/06/17 08:[address] 7.5-325 PO 1 each Q4H PRN Administration MILD Pain Enalaprilat 1.25 mg 03/05/17 20:26 Vasotec IVP Q6HR PRN Blood Pressure - High Enoxaparin Sodium 40 mg 03/06/17 09:00 03/06/17 08:11 Lovenox SQ 40 mg DAILY ZOIE Administration Hydromorphone HCl 2 mg 03/05/17 21:59 03/06/17 08:12 Dilaudid IVP 2 mg Q2HR PRN Administration Pain Hydromorphone HCl 1 mg 03/05/17 21:59 03/06/17 00:47 Dilaudid IVP 1 mg Q2HR PRN Administration Pain Sodium Chloride 1,000 mls @ 120 mls/hr 03/05/17 16:30 03/06/17 00:48 Saline 0.9% IV Not Given .Q8H20M ZOIE Iohexol 25 ml 03/05/17 12:06 03/05/17 13:32 Omnipaque 350 Mg/Ml (For Oral Use) PO 03/06/17 12:06 25 ml Q60M PRN Administration CT Scan Lisinopril 10 mg 03/06/17 09:00 03/06/17 08:11 Zestril PO 10 mg DAILY ZOIE Administration Miscellaneous Information 1 each 03/05/17 12:06 03/05/17 13:32 Rx Info: Iv Contrast Was Given MISCELLANE 03/07/17 12:06 1 each DAILY PRN Administration Per Protocol Nitroglycerin 1 inch 03/05/17 18:00 03/06/17 06:19 Nitro-Bid Oint TOPICAL Not Given Q6HR [facility] Nitroglycerin 0.4 mg 03/05/17 16:16 Nitrostat SUBLINGUAL Q5M PRN Chest Pain Ondansetron HCl 4 mg 03/05/17 20:25 03/05/17 20:34 Zofran IVP 4 mg Q6HR PRN Administration Nausea And Vomiting Pantoprazole Sodium 40 mg 03/06/17 09:00 03/06/17 08:13 Protonix IVP 40 mg DAILY ZOIE Administration Intake and Output 03/05/17 03/06/17 03/06/17 22:59 06:59 14:59 Intake Total 120 Balance 120 Intake: Intake, IV Titration 120 Amount Sodium Chloride 0.9% 1, 120 000 ml @ 120 mls/hr IV . Q8H20M ZOIE Rx#:[id number] Other: Voiding Method Toilet Toilet # Voids 2 0 Weight 65.77 kg 65.1 kg 03/06/17 05:48 03/06/17 05:45 EKG Interpretations (text) EKG shows normal sinus rhythm with no acute changes. Assessment and Plan Plan: Assessment and plan #1 atypical chest discomfort, could be secondary to recent Jackie fundoplication procedure initial troponin 0.020 subsequent troponin 0.012.012. EKG shows normal sinus rhythm with no acute changes. CT negative for pulmonary embolism. Recent dobutamine echocardiographic study in November of this year revealed no evidence of reversible ischemia. Echo performed at that time revealed an ejection fraction of 60-65%. #2 accelerated hypertension on admission, could be secondary to pain, Blood Pressure this morning 122/80. #3 history of hypertension #4 hyperlipidemia #5 nicotine dependence Plan We will discontinue the patient's Nitropaste. Discontinue when necessary antihypertensives including enalapril and hydralazine. She does not require a repeat echocardiogram with Doppler study as was just performed in November, patient also had a dobutamine stress echo at that time. Further recommendations to follow. DNP note has been reviewed, I agree with a documented findings and plan of care. Patient was seen and examined.
--- NOTE | 2017-03-06 10:04 | P.PN ---
Progress Note - Text This is an addendum to the dictated cardiology consultation. The patient presents with slow sided chest discomfort, constant and not associated with any physical activity. The patient recently underwent surgery for her hiatal hernia. She is having difficulty swallowing her pills. She has underwent a stress echocardiogram in November and her left ventricle systolic function was preserved. On presentation her blood pressure was elevated but is under good control at this time on her KIMBERLY inhibitor. Her EKG and her cardiac enzymes show no acute changes. From the cardiac standpoint I do not believe that her symptoms are cardiac in etiology and no further cardiac workup is needed. I have encouraged her to stop smoking. Thank you for this consult we will see her on an as needed basis. Please feel free to call us for any question.
[2017-03-06] MEDS: ONDANSETRON 4 MG/2 ML VIAL IVP PRN (12:26)
--- NOTE | 2017-03-06 16:01 | FL ---
EXAMINATION TYPE: FL barium swallow DATE OF EXAM: 03/06/2017 CLINICAL HISTORY: Pain TECHNIQUE: Noncontrast exam with Omnipaque was performed. COMPARISON: None FINDINGS: A contrast passed from the esophagus in the stomach and subsequently small bowel with no ev idence of obstruction or extravasation. Stomach was somewhat distended. Correlate clinically. Residua l contrast in the esophagus noted. IMPRESSION: 1. No evidence of obstruction or extravasation. Contrast passes into the esophagus and subsequent the stomach and small bowel. Some residual contrast seen along the mid thoracic level likely within the esophagus. Correlate clinically and if necessary with follow-up CT scan.
--- NOTE | 2017-03-06 17:15 | P.GSCN ---
History of Present Illness Consult date: 03/06/17 Reason for Consult: Chest & back pain. History of present illness: Thank you very much for asking us to see this patient. She had a Jackie fundoplication by Dr. Lindsey a little more than 2 weeks ago. She did fine postoperatively and was tolerating a diet. However, over the last 2 days. She's had some nausea and back pain and left flank pain. Senna to the emergency room. Had extensive workup including the chest and abdominal x-rays CTA, etc., all of which were negative. There was no evidence for pulmonary embolism. CT of the year chest and abdomen revealed no evidence of any free air extravasation or leak from her fundoplication site. No hematoma was seen. Spleen looked normal as did the liver. She states the pain in the back just to the left of the midline. This is quite severe to 9 or 10. She is using Dilaudid every 2 hours or so in addition to oral,[place]. No fever or chills. No urinary symptoms. Cardiac workup and evaluation was negative. Past history as above. History of hypertension. Asthma. She continues to smoke. Call sooner rarely and socially. Allergies aspirin and penicillin. On examination the patient is awake, alert, oriented, in no acute distress. Complains of for pain. Hydration color and temperature normal. Abdomen is quite soft. Trocar sites are clean without evidence of infection. No tenderness to mass or organomegaly. No tenderness or mass in the left upper quadrant, particularly. No definite CVA tenderness. She however reports pain in the mid back in the midline area. Extremities normal. X-rays were reviewed. WBC is normal. No significant abnormality on the CT of the abdomen and chest related to the previous surgery other than postoperative changes. Impression acute onset of back pain. No evidence of further relation to her surgery. However, is concerning that she claims to be a source of pain and using narcotic IV analgesics will frequently. Recommendation Will obtain a barium swallow to be absolutely sure that there is no evidence of any complication from the Jackie fundoplication. If further negative Patient will be discharged to home and will follow up with Dr. Lindsey. Past Medical History Past Medical History: GERD/Reflux, Hyperlipidemia, Hypertension, Osteoarthritis (OA) Additional Past Medical History / Comment(s): STATES DYSPHAGIA, HX OF DIVERTICULITIS (HOSPITALIZED APR 2016), SCOLIOSIS, HX OF FX NECK (1989) WITH PINCHED NERVE WITH NUMBNESS IN HANDS & OCCASIONAL WEAKNESS IN HANDS. STATES HAS TORN LEFT SHOULDER ROTATOR CUFF History of Any Multi-Drug Resistant Organisms: None Reported Past Surgical History: Hernia Repair Additional Past Surgical History / Comment(s): TUBAL RECONSTRUCTION (1985), EGD , COLONOSCOPY, HIATAL HERNIA REPAIR 2017 Past Anesthesia/Blood Transfusion Reactions: No Reported Reaction Past Psychological History: No Psychological Hx Reported Smoking Status: Current every day smoker Past Alcohol Use History: Heavy Past Drug Use History: Marijuana - Past Family History Father Family Medical History: Cancer Additional Family Medical History / Comment(s): LUNG CANCER Medications and Allergies Home Medications Medication Instructions Recorded Confirmed Type Lisinopril [Zestril] 10 mg PO DAILY 09/21/16 03/05/17 History HYDROcodone/APAP 7.5-325MG [[place] 1 tab PO Q4H PRN 03/05/17 03/05/17 History 7.5] Allergies Allergy/AdvReac Type Severity Reaction Status Date / Time aspirin Allergy Unknown Swelling, Verified 03/05/17 11:36 Itching Penicillins Allergy Unknown STATES SHE Verified 03/05/17 11:36 FEELS WORSE. Surgical - Exam Vital Signs Temp Pulse Resp BP Pulse Ox 97.5 F L 64 20 212/109 100 03/05/17 11:33 03/05/17 11:33 03/05/17 11:33 03/05/17 11:33 03/05/17 11:33 Results - Labs 03/06/17 05:48 03/06/17 05:45 Abnormal Lab Results - Last 24 Hours (Table) 03/06/17 Range/Units 05:45 Glucose 100 H (74-99) mg/dL Diabetes panel 03/06/17 Range/Units 05:45 Sodium 137 (137-145) mmol/L Potassium 4.1 (3.5-5.1) mmol/L Chloride 105 (98-107) mmol/L Carbon Dioxide 22 (22-30) mmol/L BUN 8 (7-17) mg/dL Creatinine 0.70 (0.52-1.04) mg/dL Glucose 100 H (74-99) mg/dL Calcium 9.1 (8.4-10.2) mg/dL Triglycerides 138 (<150) mg/dL HDL Cholesterol 50 (40-60) mg/dL Calcium panel 03/06/17 Range/Units 05:45 Calcium 9.1 (8.4-10.2) mg/dL Pituitary panel 03/06/17 Range/Units 05:45 Sodium 137 (137-145) mmol/L Potassium 4.1 (3.5-5.1) mmol/L Chloride 105 (98-107) mmol/L Carbon Dioxide 22 (22-30) mmol/L BUN 8 (7-17) mg/dL Creatinine 0.70 (0.52-1.04) mg/dL Glucose 100 H (74-99) mg/dL Calcium 9.1 (8.4-10.2) mg/dL Adrenal panel 03/06/17 Range/Units 05:45 Sodium 137 (137-145) mmol/L Potassium 4.1 (3.5-5.1) mmol/L Chloride 105 (98-107) mmol/L Carbon Dioxide 22 (22-30) mmol/L BUN 8 (7-17) mg/dL Creatinine 0.70 (0.52-1.04) mg/dL Glucose 100 H (74-99) mg/dL Calcium 9.1 (8.4-10.2) mg/dL
[2017-03-06] MEDS: HYDROmorphone 1 MG/ML 1 ML SYRINGE IVP PRN ×2 (17:42→21:28)
--- NOTE | 2017-03-06 19:53 | HP ---
DATE OF ADMISSION: 03/05/2017 PRESENTING COMPLAINT: Left lower chest pain. HISTORY OF PRESENTING COMPLAINT: This is a 56-year-old patient of Dr. Ekaterina Girard who about 10 days ago underwent Jackie fundoplication by Dr. Simpson. Patient's chronic stable medical conditions include GERD, hypertension, hyperlipidemia, osteoarthritis, scoliosis. She has also had diverticulitis in the past. Patient for 2 days started off with pain in the left lower chest wall, upper abdomen going down to the back, having some nausea. No vomiting. No fever. Because of the left-sided chest pain presentation, she was admitted initially to the medical service to make sure there is not a cardiac cause. There was no radiation to the arm. No dizziness. No shortness of breath. No perspiration. There is some local tenderness. REVIEW OF SYSTEMS: CONSTITUTIONAL: None. HEENT: None. RESPIRATORY: None. CARDIOVASCULAR: ( ) upper precordial pain. GASTROINTESTINAL: As above. GENITOURINARY: None. MUSCULOSKELETAL: Arthritic pain in the joints. DERMATOLOGICAL: None. HEMATOLOGICAL: None. LYMPHATICS: None. PSYCHIATRY: Some anxiety. NEUROLOGICAL: None. PAST HISTORY: 1. GERD. 2. Hypertension. 3. Hyperlipidemia. 4. Arthritis. 5. Diverticulitis. 6. Scoliosis. 7. History of fracture of neck with pinched nerve with numbness to the hand, occasional weakness in the hands. 8. Torn left shoulder rotator cuff. PAST SURGICAL HISTORY: 1. Hernia repair. 2. Tubal reconstruction, 1985. 3. Hiatal hernia repair recently. SOCIAL HISTORY: Patient smoked less than half pack per day. Lives with her brother. Alcohol occasionally. Marijuana occasionally. FAMILY HISTORY: Lung cancer. HOME MEDICATIONS: 1. Zestril 10 mg p.o. daily. 2. [place] 7.5 q.4 p.r.n. ALLERGIES: ASPIRIN and PENICILLIN. PHYSICAL EXAMINATION: VITAL SIGNS ON PRESENTATION: Temperature 97.5, pulse 54, respiration 20, blood pressure 185/110, pulse ox 100% on room air. GENERAL APPEARANCE: When I walked into the room, patient was lying in bed, actually sleeping comfortably. She awoke smiling. EYES: Pupils equal. Conjunctivae normal. HEENT: Oral cavity normal. NECK: JVD not raised. Mass not palpable. RESPIRATORY: Effort normal. LUNGS: Decreased breath sounds. CARDIOVASCULAR: First and second sounds normal. No edema. ABDOMEN: Mild left upper quadrant tenderness. No guarding or rigidity. Liver and spleen not palpable. LYMPHATIC: No lymph node palpable in neck or axillae. PSYCHIATRY: Alert and oriented x3. Mood and affect anxious-appearing. NEUROLOGICAL: Pupils equal. Cranial nerves grossly intact. Power and sensation grossly intact. INVESTIGATIONS: White count 7.3, hemoglobin 14.2. Potassium 4.1. BUN and creatinine are normal. Troponin x3 negative. LDL 94. EKG shows normal sinus rhythm. Abdomen and pelvis CT shows sigmoid diverticulosis. Chest CTA showed no pulmonary embolism. ASSESSMENT: 1. This is a patient with left upper abdomen and lower chest pain with a [id number] presentation. Cardiac workup has been negative. This appears to be related to the patient's surgery, for which Dr. Simpson has been consulted. Patient does not appear to have any surgical abdomen and there are no signs of infection; afebrile; normal white count. This could be spasm related to the surgical process. Otherwise, when I walked in, patient was rather comfortable in the room. 2. Gastroesophageal reflux disease. 3. Essential hypertension. 4. Hyperlipidemia. 5. Primary osteoarthritis in bilateral joints. 6. Colonic diverticulosis. 7. Chronic scoliosis. 8. Chronic nicotine dependence. Patient is a smoker. PLAN: Patient's home medications are resumed. Surgery was consulted. Cardiology was consulted, with no further workup, per them. Patient is getting IV fluids and [place] for pain medications. Will await further input from Surgery. They have also ordered a barium study.
[2017-03-07] MEDS: HYDROcodone/APAP 7.5-325MG 1 EACH TAB PO PRN ×4 (00:36→22:43)
[2017-03-07] MEDS: HYDROmorphone 1 MG/ML 1 ML SYRINGE IVP PRN ×6 (01:08→20:17)
--- NOTE | 2017-03-07 07:20 | XR ---
EXAMINATION TYPE: XR chest 2V DATE OF EXAM: 03/07/2017 HISTORY: follow up from barium swallow 03/06. REFERENCE: NONE. FINDINGS: The lungs are clear. Pleural spaces are clear. Heart size is normal. IMPRESSION: NO ACUTE INTRATHORACIC ABNORMALITY.
[2017-03-07] MEDS: ONDANSETRON 4 MG/2 ML VIAL IVP PRN ×2 (08:10→22:43)
[2017-03-07] MEDS: LISINOPRIL 10 MG TAB PO SCH (08:13)
[2017-03-07] MEDS: PANTOPRAZOLE 40 MG/10 ML VIAL IVP SCH (08:13)
[2017-03-07] MEDS: ENOXAPARIN 40 MG/0.4 ML SYRINGE SQ SCH (08:14)
[2017-03-07] MEDS: SODIUM CHLORIDE 0.9% 1,000 ML IV SCH (08:45)
[2017-03-07] MEDS ORDERED: RX INFO: IV CONTRAST WAS GIVEN 1 EACH MISC MISCELLANE PRN (16:00)
--- NOTE | 2017-03-07 16:49 | CT ---
EXAMINATION TYPE: CT lumbar spine w con DATE OF EXAM: 03/07/2017 COMPARISON: CT abdomen pelvis 03/05/2017 HISTORY: Acute lower back pain. CT DLP: 1600.10 mGycm Automated exposure control for dose reduction was used. CONTRAST: CT scan of the lumbar is performed with IV Contrast, patient injected with 100 mL of Omnipaque [address] of the lumbar spine was performed. Bone and soft tissue window settings are submitted as well as coronal and sagittal reconstructions. Exam was obtained from the existing CT abdomen pelv is 03/05/2017 FINDINGS: There is a scoliosis. Loss of disc height is present at L3-4, L4-S1, there is associated vacuum pheno marv. Lumbar vertebral bodies show preserved height and bone mineralization. Only 4 nonrib-bearing l umbar vertebral bodies. There is multilevel spondylosis. L1-L2: Facet arthropathy with hypertrophic changes causes some encroachment on the lateral recesses. Circumferential extension endplate disc complex results in foraminal encroachment greater on the righ t. L2-L3: Circumferential posterior disc bulge causes anterior mass effect on the thecal sac and extends laterally to cause some foraminal encroachment, there is mild to moderate central stenosis. L3-L4: Posterior extension of endplate disc complex with associated facet arthropathy and hypertrophy of the ligamentum flavum results in mild to moderate central canal stenosis. Circumferential extensi on of endplate disc complex results in foraminal encroachment greater on the left than on the right. L4 S1: Facet arthropathy changes present. Circumferential extension of endplate disc complex results in foraminal encroachment likely contributed by scoliosis greatest on the left. No significant centra l stenosis. No sizable disc herniation is evident.1 No abnormal enhancement following contrast administration. Diverticular change noted incidentally in the sigmoid colon. IMPRESSION: Multilevel degenerative disc disease, facet arthropathy, foraminal encroachment. Scoliosis. Additiona l findings above, correlate with plain film prior to any intervention.
--- NOTE | 2017-03-07 17:13 | P.PN ---
Progress Note - Text Patient continues to complain of the pain now it seems to be very localized to the mid back over the final cord. Very severe almost 10 out of 10. She states the analgesics including IV is not helping her. No appetite. H on examination she is in no acute distress. Temperature is normal. Vitals are normal. Abdomen is very soft and benign no localized tenderness no guarding. Lap thais trocar sites are fine with no evidence of infection. No significant back tenderness or CVA tenderness. All workup thus far is negative. This includes a computed tomography scan barium swallow and the chest x-ray. No evidence of pulmonary embolism. Impression. Severe back pain seems to localize over the thoracic the lower spine. Recommendation we will obtain orthopedic consult. Nothing surgical to offer since all the studies are negative. No evidence of any complications from her Jackie fundoplication. May resume normal diet. Follow-up with Dr. Simpson when discharged.
--- NOTE | 2017-03-07 17:30 | XR ---
EXAMINATION TYPE: XR lumbar spine 1V DATE OF EXAM: 03/07/2017 COMPARISON: NONE HISTORY: Low back pain Findings A single frontal view of the lumbar spine was obtained. There is a slight levoscoliosis. There is jovita rowing of disc spaces. There are 4 lumbar type vertebra. I see no compression fracture. Sacroiliac kelin ints are intact. Exam is limited by the oral contrast in the colon. IMPRESSION: Mild levoscoliosis. Spondylotic changes. No compression fracture. Limited exam. There is contrast filled appendix that appears normal.
--- NOTE | 2017-03-07 19:13 | PN ---
DATE OF SERVICE: 03/07/2017 PRESENTING COMPLAINT: Back pain. INTERVAL HISTORY: This is a patient who just had Jackie fundoplication by Dr. Simpson. She presented with pain in the upper abdomen, chest. She was seen by Dr. Phelan covering for Dr. Simpson. He did carry out a barium swallow which came back negative. Patient's pain is only controlled, she says, by IV Dilaudid, though found to be ( ) comfortable otherwise. Today when I talked to her the pain has gone to the back. She complains of pain in the lumbar area, and it has gone away from the front. No nausea or vomiting. Did tolerate her diet. Resting comfortably when I came to the room. Review of systems done for constitutional, cardiovascular, GI, pulmonary, musculoskeletal; relevant findings as above. Current medications are reviewed that include IV Dilaudid. On examination, temperature 98.1, pulse 54, respiration 18, blood pressure 193/96 earlier with pain. Pulse ox 99% on room air. GENERAL APPEARANCE: Lying in bed. Comfortable. Sleeping when I came in. Patient was able to comfortably get up and sit up when I wanted to examine her. EYES: Pupils equal. Conjunctivae normal. NECK: JVD not raised. RESPIRATORY: Effort normal. LUNGS: Decreased breath sounds. CARDIOVASCULAR: First and second sounds normal. No edema. ABDOMEN: Soft, nontender. Liver and spleen not palpable. MUSCULOSKELETAL: Patient points to the lower lumbar area, on the left of it. There is minimal tenderness with any ( ) INVESTIGATIONS: White count 8.1, hemoglobin 12.4. Potassium 4.1. LDL 94. Patient's barium swallow results were discussed with Dr. Phelan. Nothing further to be done, per him. ASSESSMENT: 1. This is a patient who initially had pain in the front, now with pain in the back. I think this is a referred pain, if any; could be from the surgery. Patient had Jackie fundoplication. Patient looks rather comfortable. Normal white count. No fever. There is minimal tenderness on the spinal area. Patient wants this to be further investigated. 2. Gastroesophageal reflux disease. 3. Essential hypertension, probably up from patient being anxious. 4. Hyperlipidemia. 5. Primary osteoarthritis in bilateral joints. 6. Colonic diverticulosis. 7. Chronic scoliosis. 8. Chronic nicotine dependence. Patient is a smoker. PLAN: I am ordering a CT scan of the lumbar spine with and without contrast. I did speak to Dr. Carroll's orthopedic spine team; Dr. Carroll is out of town. Will also order plain x-rays of the lumbar spine and go from there.
[2017-03-08] MEDS: HYDROmorphone 1 MG/ML 1 ML SYRINGE IVP PRN ×5 (00:11→20:48)
[2017-03-08] MEDS: SODIUM CHLORIDE 0.9% 1,000 ML IV SCH ×4 (04:25→19:45)
[2017-03-08] MEDS: HYDROcodone/APAP 7.5-325MG 1 EACH TAB PO PRN ×3 (04:30→19:44)
[2017-03-08] MEDS: ENOXAPARIN 40 MG/0.4 ML SYRINGE SQ SCH (08:55)
[2017-03-08] MEDS: LISINOPRIL 10 MG TAB PO SCH (08:55)
--- NOTE | 2017-03-08 09:03 | P.PN ---
Progress Note - Text Patient continues to complain of back pain. Mostly in the mid back. Appetite is still low diminished. Some nausea after eating or drinking fluids. Back pain is somewhat improved with a heating pad and analgesia. On examination the patient is awake alert and does not appear to be in any acute distress. Vitals are stable. No fever. Abdomen is quite soft with usual postoperative tenderness no guarding or rebound. Trocar sites are fine. ` To reveal some degenerative joint changes. Impression persistent back pain. Some nausea. Recommendation. Nothing surgical to offer in that all her studies are negative in terms of her Jackie fundoplication surgery. No evidence of unraveling off the wrap or leak or obstruction. Agree with plans for MRI of the back.
--- NOTE | 2017-03-08 13:44 | P.CON ---
Consult Note - . Consult date: 03/08/17 Assessment/Plan:: Patient seen and examined, imaging studies reviewed along with medical/surgical/ family/social histories and allergies. Ms. Kruger is a 56-year-old female who presented to the hospital with dry heaving, nausea, and mid back pain and anterior chest pain after having undergone hiatal hernia surgery approximately two weeks ago. She began to have pain with eating food on Monday morning and it became intolerable, and thus she presented to the ER. Patient noted that she has never taken opioid pain medications and has never had any significant back problems in the past. She denies any antecedent trauma or lifting/bending/twisting injury. There is some mild tenderness to palpation in the left thoracic paravertebral area, but the patient does not complain of any radicular symptoms in the chest, and notes that the pain worsens most with consumption of food or liquids. GI workup including barium swallow thus far has been negative, although EGD has not yet been performed. Her pain does not immediately appear to be musculoskeletal in origin, and with the time course of her recent Jackie fundoplication, gastric pain could correlate with referred pain to the lower thoracic spine. That said, if primary and surgical services believe that this pain is MSK in origin, would recommend CT or MRI of the thoracic spine and not the lumbar spine to evaluate further. If there is evidence of disc herniation or radiculopathy in the T-spine, patient may benefit from a thoracic epidural steroid injection. The patient's Lovenox would need to be held for at least 12 hours prior to any intervention taking place. Recommend continuing analgesics for now and proceeding with EGD. Please call back with any further questions.
[2017-03-08 17:45] LABS: Bilirubin, Delta 0.2 mg/dL (0.0-0.2); C Reactive Protein 16.6 mg/L (<10.0); Total Bilirubin 0.6 mg/dL (0.2-1.3); Total Protein 5.8 g/dL (6.3-8.2)
--- NOTE | 2017-03-08 21:52 | PN ---
DATE OF SERVICE: 03/08/2017 This 56-year-old woman who was admitted with back pain is being closely monitored. Patient was seen by Surgery, also. The pain is mostly situated in the left side of the back and left lower chest, which increases with inspiration. PHYSICAL EXAMINATION: Patient is alert and oriented x3. Pulse is 64, blood pressure 136/86, respiration 18, temperature 98.2, pulse ox 96% on room air. HEENT: Conjunctivae normal. CARDIOVASCULAR SYSTEM: S1, S2 muffled. RESPIRATORY SYSTEM: Breath sounds diminished at the bases. A few scattered rhonchi. No crackles. ABDOMEN: Soft. Non-tender. No mass palpable. LEGS: No edema. No swelling. NERVOUS SYSTEM: No focal deficit. REVIEW OF SYSTEMS: CARDIOVASCULAR SYSTEM: As mentioned earlier. RESPIRATORY SYSTEM: As mentioned earlier. GI: No nausea. : No dysuria. NERVOUS SYSTEM: No numbness or weakness. Current medications are reviewed and include: 1. [place] 7.5 mg. 2. Lovenox. 3. Dilaudid. 4. Zestril. 5. Nitrostat. 6. Zofran. LABS AT THIS TIME: CBC within normal limits. Otherwise, glucose 100. The lumbar spine x-ray which was done yesterday showed mild scoliosis. Chest x-ray done yesterday showed no acute abnormality. ASSESSMENT: 1. Back pain, chest pain; rule out pleurisy. 2. Possible degenerative joint disease. 3. History of gastroesophageal reflux disease. 4. History of hypertension. 5. History of hyperlipidemia. 6. History of primary degenerative joint disease of bilateral joints. 7. Colonic diverticulosis. 8. Chronic scoliosis. 9. Chronic nicotine dependence. 10. Increased ALT. RECOMMENDATIONS AND DISCUSSION: Recommend to continue current medications, continue with monitoring, symptomatic treatment. Otherwise, at this time I would recommend repeat labs. ALT is ALT high. I will repeat. Continue to monitor. Further recommendations to follow. See orders for further details. DVT prophylaxis.
[2017-03-09] MEDS: HYDROcodone/APAP 7.5-325MG 1 EACH TAB PO PRN ×2 (00:50→07:42)
[2017-03-09] MEDS: SODIUM CHLORIDE 0.9% 1,000 ML IV SCH (00:51)
[2017-03-09] MEDS: HYDROmorphone 1 MG/ML 1 ML SYRINGE IVP PRN ×2 (00:53→10:11)
[2017-03-09 07:15] VITALS: RESP 16
[2017-03-09] MEDS ORDERED: MAG HYDROX/AL HYDROX/SIMETH 30 ML CUP PO PRN (09:28)
[2017-03-09] MEDS: ENOXAPARIN 40 MG/0.4 ML SYRINGE SQ SCH (09:30)
[2017-03-09] MEDS: LISINOPRIL 10 MG TAB PO SCH (09:30)
--- NOTE | 2017-03-09 10:26 | P.PN ---
Subjective The patient is status post laparoscopic Jackie fundoplication. She is tolerating her Jackie diet with no nausea or vomiting. She's having back pain. She is concerned about constipation due to the recent barium swallow Objective - Vital Signs Vital signs: Vital Signs Temp 97.6 F 03/09/17 07:14 Pulse 61 03/09/17 07:14 Resp 16 03/09/17 07:14 BP 161/96 03/09/17 07:14 Pulse Ox 97 03/09/17 07:14 Intake & Output 03/08/17 03/09/17 03/09/17 18:59 06:59 18:59 Intake Total 1880 480 475 Balance 1880 480 475 Intake: IV 480 Sodium Chloride 0.9% 1, 480 000 ml @ 120 mls/hr IV . Q8H20M [facility] Rx#:[id number] Oral 1880 475 Other: Voiding Method Toilet Toilet # Voids 1 - Constitutional General appearance: Present: cooperative, no acute distress - Gastrointestinal General gastrointestinal: Present: soft. Absent: tenderness - Labs CBC & Chem 7: 03/06/17 05:48 03/06/17 05:45 Labs: Abnormal Lab Results - Last 24 Hours (Table) 03/08/17 Range/Units 17:12 AST 50 H (14-36) U/L ALT 57 H (9-52) U/L C-Reactive Protein 16.6 H (<10.0) mg/L Total Protein 5.8 L (6.3-8.2) g/dL Assessment and Plan Plan: The patient's currently doing well from a surgical standpoint. We'll give her some milk of magnesia due to the recent barium ingestion. She can follow-up with Dr. Simpson as outpatient.
[2017-03-09 11:14] VITALS: BP 133/95; PULSE 55; TEMP 97.7
--- NOTE | 2017-03-10 14:58 | DS ---
DATE OF ADMISSION: 03/07/2017 DATE OF DISCHARGE: 03/09/2017 FINAL DIAGNOSES: 1. Back pain and chest pain, possible pleurisy, possibly degenerative joint disease. 2. History of gastroesophageal reflux disease. 3. History of hypertension, essential. 4. History of hyperlipidemia. 5. History of primary degenerative joint disease in bilateral joints. 6. Colonic diverticulosis. 7. Chronic scoliosis. 8. History of nicotine dependence. 9. Increased ALT. DISCHARGE DISPOSITION: The patient will be discharged in stable condition with guarded prognosis after clearance of multiple consultants. HISTORY OF PRESENT ILLNESS: This 56-year-old woman with a past medical history of multiple medical problems was admitted with chest pain and back pain. The patient was seen by multiple consultants including surgery, pain management and as well as cardiology. Care was coordinated. The patient improved significantly with symptomatic treatment and recommend outpatient follow ups. LFTs were mildly elevated. On exam, vitals are stable. CARDIOVASCULAR: S1, S2. ABDOMEN: Soft. NERVOUS SYSTEM: No focal deficit. The patient also had multiple evaluations also including lumbar x-rays and barium swallow also, which are did not show any acute abnormalities. Chest CT and abdominal and pelvis CT scan was also noted. Recommend outpatient follow-up. DISCHARGE ADVICE: 1. Diet is cardiac. 2. Activity limited until follow-up. 3. Follow-up follow up with Dr. Ekaterina Girard in 2 to 3 days. 4. Follow with the pressing department supervisor as advised. 5. Follow up with Surgery as per Dr. Simpson's recommendations. 6. Follow with pain management and Dr. Carroll, the back surgeon from [facility], as recommended. MEDICATIONS: 1. [place] 7.5 q.6 p.r.n. 2. Zestril 10 mg daily.
== END 2017-03-09 13:29 | disposition home or self-care (01) | DRG 552 ==
LOC: EC 11:17 → 6SEL 16:18 → 3OBS 03-06 11:30 → OBSVTOIN 03-07 01:00
PROVIDERS: ADMIT Hospitalist; ATTEND Hospitalist
DX: M51.36 Other intervertebral disc degeneration, lumbar region (principal); M41.9 Scoliosis, unspecified; I10 Essential (primary) hypertension; R13.10 Dysphagia, unspecified; R09.1 Pleurisy; M51.37 Other intervertebral disc degeneration, lumbosacral region; E78.5 Hyperlipidemia, unspecified; F17.200 Nicotine dependence, unspecified, uncomplicated; K21.9 Gastro-esophageal reflux disease without esophagitis; M19.91 Primary osteoarthritis, unspecified site; J45.909 Unspecified asthma, uncomplicated; K57.30 Diverticulosis of large intestine without perforation or abscess without bleeding; Z79.899 Other long term (current) drug therapy; Z88.6 Allergy status to analgesic agent; Z88.0 Allergy status to penicillin
CPT/HCPCS: 36415; 71020; 71275; 72020; 72132; 74177; 74220; 80048; 80053; 80061; 80076; 82150; 82550; 82553; 83690; 83735; 84484; 85025; 85610; 85652; 85730; 86140; 93005; 96361; 96374; 96375; 96376; 99285

== ENCOUNTER → 2017-09-08 | Outpatient (CLI) | payer MEDICARE, OTHER ==
--- NOTE | 2017-09-08 22:53 | FL ---
EXAMINATION TYPE: FL barium swallow DATE OF EXAM: 09/08/2017 COMPARISON: NONE HISTORY: Dysphasia TECHNIQUE: A double contrast UGI study is performed. FINDINGS: Esophagus dilates to normal caliber has normal contour to the gastroesophageal junction. Gastroesopha geal junction opens to normal caliber No stenosis is present Note is made of a sliding-type self reducing hernia present during this examination Under real-time observation secondary and tertiary contractions were evident. There is incomplete str ipping of the esophageal bolus the horizontal drinking position. IMPRESSIONS: 1. Presbyesophagus. 2. Sliding-type hiatal hernia. 3. Incomplete stripping of the esophageal bolus in the horizontal drinking position.
== END | disposition home or self-care (01) ==
LOC: RADFLWHC 10:04
PROVIDERS: ATTEND Surgery
DX: K44.9 Diaphragmatic hernia without obstruction or gangrene (principal); K22.8 Other specified diseases of esophagus
CPT/HCPCS: 74220

== ENCOUNTER 2017-09-26 10:48 | Day surgery (SDC) | payer MEDICARE, OTHER ==
[2017-09-22 09:42] VITALS: BMI 27.8
[~2017-09-26 10:48] MED LIST changes: -DEXAMETHASONE SOD PHOSPHATE 10 MG/ML 1 ML VIAL IV ONE; -HEPARIN SODIUM,PORCINE 5,000 UNIT/ML 1 ML VIAL SQ ONE; -HYDROmorphone 1 MG/ML 1 ML SYRINGE IVP PRN; -SCOPOLAMINE 1.5MG/72HR PATCH TRANSDERM ONE; -ceFAZolin 2 GM in SODIUM CHLORIDE 0.9% 100 ML IVPB ONE
[2017-09-26 11:03] VITALS: TEMP 97.7
[2017-09-26] MEDS ORDERED: PROPOFOL 10 MG/ML 20 ML VIAL IV ONE (11:31)
[2017-09-26] MEDS ORDERED: LIDOCAINE 1% INJ 10MG/ML (20 ML MDV) ONE (11:31)
--- NOTE | 2017-09-26 11:34 | P.GSHP ---
History of Present Illness H&P Date: 09/26/17 Chief Complaint: Dysphagia, GERD Is a 57-year-old female who's had complaints of dysphagia and GERD. Her recent esophagram shows evidence of recurrent sliding hiatal hernia. She presents today for EGD. Past Medical History Past Medical History: GERD/Reflux, Hyperlipidemia, Hypertension, Osteoarthritis (OA) Additional Past Medical History / Comment(s): STATES DYSPHAGIA, HX OF DIVERTICULITIS (HOSPITALIZED APR 2016), SCOLIOSIS, HX OF FX NECK (1989) WITH PINCHED NERVE WITH NUMBNESS IN HANDS & OCCASIONAL WEAKNESS IN HANDS. STATES HAS TORN LEFT SHOULDER ROTATOR CUFF, SLIDING HIATAL HERNIA History of Any Multi-Drug Resistant Organisms: None Reported Past Surgical History: Hernia Repair Additional Past Surgical History / Comment(s): TUBAL RECONSTRUCTION (1985), EGD , COLONOSCOPY, HIATAL HERNIA REPAIR 2016 Past Anesthesia/Blood Transfusion Reactions: No Reported Reaction Smoking Status: Current every day smoker - Past Family History Father Family Medical History: Cancer Additional Family Medical History / Comment(s): LUNG CANCER Medications and Allergies Home Medications Medication Instructions Recorded Confirmed Type Lisinopril [Zestril] 10 mg PO DAILY 09/21/16 09/26/17 History Ergocalciferol (Vitamin D2) 50,000 units PO WE 09/22/17 09/26/17 History [Vitamin D2] Pravastatin Sodium [Pravachol] 80 mg PO HS 09/22/17 09/26/17 History Allergies Allergy/AdvReac Type Severity Reaction Status Date / Time aspirin Allergy Unknown Swelling, Verified 09/26/17 11:03 Itching Penicillins Allergy Unknown STATES SHE Verified 09/26/17 11:03 FEELS WORSE. Surgical - Exam Vital Signs Temp Pulse Resp BP Pulse Ox 97.7 F 77 16 157/73 100 09/26/17 11:02 09/26/17 11:02 09/26/17 11:02 09/26/17 11:02 09/26/17 11:02 - General well developed, no distress - Eyes PERRL - ENT normal pinna - Neck no masses - Respiratory normal expansion - Cardiovascular Rhythm: regular - Abdomen Abdomen: soft, non tender Assessment and Plan Assessment: GERD. We will perform EGD.
--- NOTE | 2017-09-26 11:46 | P.OP ---
Date of Procedure: 09/26/17 Preoperative Diagnosis: GERD Dysphagia Postoperative Diagnosis: Mild antral gastritis Small recurrent hiatal hernia Possible GE junction stricture Procedure(s) Performed: EGD Anesthesia: MAC Surgeon: Anurag Simpson Pathology: other (Antrum, esophagus) Condition: stable Disposition: PACU Description of Procedure: The patient's placed on the endoscopy table in the lateral position she received IV sedation. The gastroscope was placed oropharynx and passed in the esophagus and into the stomach. Scope was then placed through the pylorus. The first and second portion of the duodenum appeared normal. Scope was then brought back the antrum and this was mildly inflamed. A biopsies performed. Scope was unretroflexed patient had a previous fundoplication wrap. This appeared to be normal. Scope was withdrawn. And a small sliding hiatal hernia was visualized. The GE junction was at 39 cm. The distal esophagus appeared mildly inflamed a biopsies performed. Due to the patient's of dysphagia a 20 mm balloon was placed across the GE junction. This was held in position for 3 minutes. There is no evidence of any obvious stricture. At this point the scope was withdrawn. The esophagus did not appear to have any injury. The proximal esophagus appeared normal. Scope was withdrawn for patient.
[2017-09-26] MEDS ORDERED: fentaNYL (PF) 50 MCG/ML 2 ML AMP IV ONE ×2 (12:09→12:25)
[2017-09-26 12:41] VITALS: BP 148/65; PULSE 58; RESP 16
== END 2017-09-26 13:05 | disposition home or self-care (01) ==
LOC: ORWHC2ENDO 10:48
PROVIDERS: ATTEND Surgery
DX: K29.50 Unspecified chronic gastritis without bleeding (principal); K44.9 Diaphragmatic hernia without obstruction or gangrene; R13.10 Dysphagia, unspecified; K21.9 Gastro-esophageal reflux disease without esophagitis; E78.5 Hyperlipidemia, unspecified; I10 Essential (primary) hypertension; M19.90 Unspecified osteoarthritis, unspecified site; Z87.19 Personal history of other diseases of the digestive system; F17.200 Nicotine dependence, unspecified, uncomplicated; Z79.899 Other long term (current) drug therapy; Z88.6 Allergy status to analgesic agent; Z88.0 Allergy status to penicillin
CPT/HCPCS: 88305; 88342; 43239; 43249; J2001; J3010; J2704; C1726

== ENCOUNTER → 2019-11-29 | Outpatient (CLI) | payer MEDICARE, OTHER ==
--- NOTE | 2019-11-29 17:17 | MR ---
EXAMINATION TYPE: MR cervical spine wo con DATE OF EXAM: 11/29/2019 COMPARISON: None HISTORY: Cervicalgia TECHNIQUE: Multiplanar, multisequence images of the cervical spine were acquired. There is loss of the normal cervical lordosis. Heterogeneous marrow signal likely on the basis of mar row redistribution. There is severe degenerative disc disease at level C3-T1. C2-C3: No evidence for degenerative disc disease. No disc bulge/herniation or protrusion. No Canal stenosis. Foramina are patent bilaterally. Mild facet arthropathy. C3-C4: Severe degenerative disc disease and facet arthropathy with uncovertebral joint hypertrophy. M oderate bilateral foraminal encroachment. No disc herniation or canal stenosis. C4-C5: Severe degenerative disc disease with facet arthropathy greater on the left. There is uncovert ebral joint hypertrophy is seen. Moderate left foraminal encroachment. No disc herniation or canal st enosis. C5-C6: Severe degenerative disc disease with broad-based disc bulging centrally. There is uncovertebr al joint hypertrophy and facet arthropathy. Mild left foraminal encroachment and moderate to severe r ight foraminal encroachment. No Canal stenosis. C6-C7: Severe degenerative disc disease with facet arthropathy and uncovertebral joint hypertrophy. M ild bilateral foraminal encroachment. No canal stenosis or discrete herniation C7-T1: Uncovertebral joint hypertrophy and circumferential disc bulging with facet arthropathy. Moder ate bilateral foraminal encroachment. Broad-based disc bulging. No Canal stenosis. At T1-T2 there is broad-based disc protrusion. Mild effacement of thecal sac. Moderate bilateral fora pili encroachment. At T4-T5 is there is sagittal disc bulging only included on the sagittal images. Cervical segments are intact. There is normal alignment. Cervical spinal cord is of normal signal. Craniovertebral junction relationships are within normal limits. IMPRESSION: 1. Severe degenerative disc disease at all levels with multilevel facet arthropathy and uncovertebral joint hypertrophy contribute to multilevel foraminal encroachment as discussed above. 2. There is multilevel disc bulging but no focal herniation or canal stenosis at any of the visualize d levels.
== END | disposition home or self-care (01) ==
LOC: RADMRIMAIN 16:31
PROVIDERS: ATTEND Family Medicine
DX: M47.812 Spondylosis without myelopathy or radiculopathy, cervical region (principal); M50.30 Other cervical disc degeneration, unspecified cervical region
CPT/HCPCS: 72141

== ENCOUNTER → 2020-01-29 | Outpatient (CLI) | payer MEDICARE, OTHER | END | disposition home or self-care (01) | LOC: LABWHC1 08:02 | PROVIDERS: ATTEND Orthopaedic Surgery | DX: U07.1 COVID-19 (principal); Z22.322 Carrier or suspected carrier of Methicillin resistant Staphylococcus aureus | CPT/HCPCS: 87070; 87635 ==

== ENCOUNTER 2020-01-31 11:26 | Day surgery (SDC) | payer MEDICARE, OTHER ==
[2020-01-29 16:11] VITALS: BMI 24.9
--- NOTE | 2020-01-30 14:19 | HP ---
HISTORY AND PHYSICAL REASON FOR ADMISSION: Surgery scheduled for 01/31/2020. HISTORY OF PRESENT ILLNESS: Nela Kruger is a 59-year-old patient seen with symptomatic left knee osteoarthritis. We discussed options for treatment. She elected to proceed with left total knee arthroplasty. Consent was obtained. Medical clearance was provided by Dr. Girard. PAST MEDICAL HISTORY: Hypertension. PAST SURGICAL HISTORY: Herniorrhaphy. MEDICATIONS: Lisinopril. ALLERGIES: Aspirin, pravastatin. SOCIAL HISTORY: She smokes 1/4 pack of cigarettes daily. PHYSICAL EXAMINATION: Evaluation of the left knee range of motion is -2/3-130. There is a mild effusion present. Tenderness along the medial joint line. Crepitus along the medial patellofemoral compartments with range of motion. Ligaments are stable. Hip rotation without pain. Distal neurovascular exam is intact left knee. RADIOGRAPHS: Left knee radiographs reveal severe osteoarthritic changes. IMPRESSION: 1. Left knee osteoarthritis. 2. Hypertension. 3. Tobacco use. PLAN: Left total knee arthroplasty. Surgery is 01/31/2020. MMODL / IJN: [id number] /
[~2020-01-31 11:26] MED LIST changes: +ACETAMINOPHEN TAB 500 MG TAB PO ONE; +DEXAMETHASONE SOD PHOSPHATE 10 MG/ML 1 ML VIAL IV ONE; +LIDOCAINE 1% (10MG/ML) FOR IV START INTRADERMA PRN; -LIDOCAINE 1% 20 ML VIAL (10MG/ML) FOR IV START INTRADERMA PRN; +MELOXICAM 7.5 MG TAB PO ONE; +ONDANSETRON 4 MG/2 ML VIAL IVP ONE; +ROPIVACAINE 246.25 MG, EPINEPHrine 0.5 MG, KETOROLAC 30 MG, cloNIDine HCL/PF 80 MCG, WA... MISCELLANE ONE; +SCOPOLAMINE 1.5MG/72HR PATCH TRANSDERM ONE; +TRANEXAMIC ACID 1,000 MG in SODIUM CHLORIDE 0.9% 100 ML IVPB ONE
[2020-01-31 12:00] VITALS: RESP 16
[2020-01-31] MEDS ORDERED: MIDAZOLAM 2 MG/2 ML VIAL IV ONE (12:09)
[2020-01-31] MEDS ORDERED: LIDOCAINE 1% INJ 10MG/ML (20 ML MDV) ONE (12:52)
[2020-01-31] MEDS ORDERED: fentaNYL (PF) 50 MCG/ML 2 ML AMP ONE (12:52)
[2020-01-31] MEDS ORDERED: PROPOFOL 10 MG/ML 20 ML VIAL IV ONE (12:52)
[2020-01-31] MEDS ORDERED: ePHEDrine SULFATE/0.9% NACL/PF 50 MG/5 ML SYRINGE IV ONE (12:52)
[2020-01-31] MEDS ORDERED: SUCCINYLCHOLINE CHLORIDE 100 MG/5 ML SYR IV ONE (12:52)
[2020-01-31] MEDS ORDERED: MIDAZOLAM 2 MG/2 ML VIAL ONE (12:52)
[2020-01-31] MEDS ORDERED: ceFAZolin 3,000 MG in SODIUM CHLORIDE 0.9% IRRIGATIO 3,000 ML IRRIGATION ONE (13:25)
--- NOTE | 2020-01-31 14:01 | P.ANPRN ---
Procedure Note - Anesthesia - Nerve Block Performed Left Adductor Canal Date of Procedure: 01/31/20 Procedure Start Time: 12:09 Procedure Stop Time: 12:25 Location of Patient: PreOp Indication: Acute Post-Operative Pain, Requested by Surgeon (Dr Zepeda) Sedation Type: Sedate with meaningful contact maintained Preparation: Sterile Prep, Sterile Dressing Position: Supine Catheter: Indwelling Needle Types: On-Q Needle Gauge: 21 Ultrasound used to visualize needle placement: Yes Ultrasound used to observe medication spread: Yes Injectate: 0.5% Ropivacaine (see comment for volume) (20cc) Blood Aspirated: No Pain Paresthesia on Injection Noted: No Resistance on Injection: Normal Image Stored and Saved: Yes Events: Uneventful and Well Tolerated
[2020-01-31] MEDS ORDERED: LACTATED RINGERS 1,000 ML IV ONE (14:23)
[2020-01-31] MEDS ORDERED: ROPIVACAINE 0.2%-NS ON-Q PUMP 1,090 MG, EMPTY PAIN BALL 1 EACH MISCELLANE PRN (14:30)
[2020-01-31] MEDS ORDERED: NALOXONE 0.4 MG/ML 1 ML VIAL IV PRN (14:41)
[2020-01-31] MEDS ORDERED: ONDANSETRON 4 MG/2 ML VIAL IVP PRN (14:41)
[2020-01-31] MEDS ORDERED: HYDROmorphone 0.5 MG/0.5 ML SYRINGE IVP PRN ×2 (14:41)
[2020-01-31] MEDS ORDERED: HYDROcodone/APAP 5-325MG 1 EACH TAB PO PRN (14:41)
[2020-01-31] MEDS ORDERED: HYDROmorphone 1 MG/ML 1 ML SYRINGE IVP PRN (14:41)
--- NOTE | 2020-01-31 14:41 | P.OP ---
Date of Procedure: 01/31/20 Preoperative Diagnosis: Left knee osteoarthritis Postoperative Diagnosis: Left knee osteoarthritis Procedure(s) Performed: Patient was taken to the operative suite after having an adductor canal catheter placed by the department of anesthesia. Patient underwent a general anesthetic by the department of anesthesia. Patient was given preoperative IV intake antibiotics and TXA. A well-padded tourniquet was placed about the left lower extremity. The lower extremity was then prepped and draped in the normal sterile orthopedic fashion. The extremity was elevated, a tourniquet was insufflated to 300. A standard anterior incision was made sharply through skin. Dissection was taken down through the subcutaneous soft tissues down to the extensor mechanism. A medial arthrotomy was performed, patella was everted and knee was flexed. There was advanced osteoarthritis noted. I introduced my distal intramedullary femoral drill. I then introduced the distal femoral cutting jig. Gabriele MARTINEZ secured the cutting jig with 2 pins. I held retractors in position while Gabriele MARTINEZ performed the distal femoral resection through the guide area we now removed her distal femoral cutting guide. We now placed our 4-in-1 femoral cutting block and positioned and it was secured with 2 pins by Gabriele MARTINEZ while I held the block in position. The distal femoral finishing was now completed. A proximal tibial cutting guide was positioned. I held the guide in the appropriate position with both hands well Gabriele MARTINEZ inserted stabilizing pins into the guide. Proximal tibial cut was made. We now placed a trial femoral component into position, along with an appropriate size tibial tray and insert. We now took the knee through range of motion and had full extension good flexion and good overall soft tissue balance noted. The patella was everted and stabilized with 2 towel clips held by Gabriele MARTINEZ while I performed a flush with patellar quad tendon utilizing a fresh sawblade. We templated the patella, appropriate drill holes were made. An appropriate trial patella was positioned, knee was taken through full range of motion with the patella tracking very nicely. The trial patella was removed. Drill holes were made through the femoral component. All trial components were removed after marking off the appropriate rotation of the tibia. Retractors were now positioned along the proximal tibia. An appropriate keel punch was made with the appropriate size tibial guide by myself on Gabriele MARTINEZ assisted by holding retractors. At this point appropriate size implants were chosen and opened. The joint was irrigated copiously with pulse lavage mechanical irrigation. The posterior capsule was infiltrated with local analgesic. The wound was irrigated with pulse lavage mechanical irrigation. We mixed antibiotic methylmethacrylate. We placed the knee into flexion. We placed multiple retractors assisted by Gabriele MARTINEZ to expose the proximal tibia. Once the methyl methacrylate was ready, the tibial component was cemented into place removing any excess methylmethacrylate form by both myself and Gabriele MARTINEZ. The femoral component was cemented into place removing the removing any excess methylmethacrylate performed by both myself and Gabriele MARTINEZ. We then inserted the appropriate size polyethylene tibial insert. We made sure that it was locked into position. We took the knee into full extension, and then back in a flexion making sure we had removed any excess methylmethacrylate. The patellar component was then cemented down and secured with clamp. Excess methylmethacrylate removed. We kept the knee in full extension, patellar clamp in position until methylmethacrylate had hardened. Once it had hardened the patellar clamp was removed. The knee was taken through full range of motion. The patella tracked nicely. There was good soft tissue balancing. The tourniquet was now released. Additional hemostasis was achieved via electrocautery. A second gram of TXA was given. The wound again was irrigated with pulse lavage mechanical irrigation. The superficial soft tissues were infiltrated local analgesic. The extensor mechanism was repaired with Vicryl. We checked the repair with range of motion and it was stable. The subcutaneous soft tissues were repaired with Vicryl in layers. The skin was approximated with pernio/Dermabond. Sterile dressings were applied followed by loose web roll and Agustín bandage. The patient was transferred to a bed, and taken to recovery in stable and satisfactory condition. Gabriele MARTINEZ assisted with this complex procedure. Implants: 1. Depuy attune size 3 left cruciate retaining cemented femur 2. Depuy attune size 3 fixed bearing cemented tibial baseplate 3. Depuy attune size 3 fixed bearing cruciate retaining 10 mm polyethylene tibial insert 4. Depuy attune 35 mm all polyethylene cemented patella Anesthesia: GETA, regional (Adductor canal catheter/block), local Surgeon: Alfie Zepeda Conservation Specialist #1: Andrew Craig Estimated Blood Loss (ml): 30 Pathology: other (Bone) Condition: stable Disposition: PACU Indications for Procedure: 59-year-old patient seen with symptomatic left knee osteoarthritis. She had been previously scheduled for total knee arthroplasty and her procedure was canceled secondary to the Covid 19 crisis. Her symptoms had become severe and debilitating. She elected to proceed with total knee arthroplasty at this time. Operative Findings: see description of procedure Description of Procedure: Patient was taken to the operative suite after having an adductor canal catheter placed by the department of anesthesia. Patient underwent a general anesthetic by the department of anesthesia. Patient was given preoperative IV intake antibiotics and TXA. A well-padded tourniquet was placed about the left lower extremity. The lower extremity was then prepped and draped in the normal sterile orthopedic fashion. The extremity was elevated, a tourniquet was insufflated to 300. A standard anterior incision was made sharply through skin. Dissection was taken down through the subcutaneous soft tissues down to the extensor mechanism. A medial arthrotomy was performed, patella was everted and knee was flexed. There was advanced osteoarthritis noted. I introduced my distal intramedullary femoral drill. I then introduced the distal femoral cutting jig. Gabriele MARTINEZ secured the cutting jig with 2 pins. I held retractors in position while Gabriele MARTINEZ performed the distal femoral resection through the guide area we now removed her distal femoral cutting guide. We now placed our 4-in-1 femoral cutting block and positioned and it was secured with 2 pins by Gabriele MARTINEZ while I held the block in position. The distal femoral finishing was now completed. A proximal tibial cutting guide was positioned. I held the guide in the appropriate position with both hands well Gabriele MARTINEZ inserted stabilizing pins into the guide. Proximal tibial cut was made. We now placed a trial femoral component into position, along with an appropriate size tibial tray and insert. We now took the knee through range of motion and had full extension good flexion and good overall soft tissue balance noted. The patella was everted and stabilized with 2 towel clips held by Gabriele MARTINEZ while I performed a flush with patellar quad tendon utilizing a fresh sawblade. We templated the patella, appropriate drill holes were made. An appropriate trial patella was positioned, knee was taken through full range of motion with the patella tracking very nicely. The trial patella was removed. Drill holes were made through the femoral component. All trial components were removed after marking off the appropriate rotation of the tibia. Retractors were now positioned along the proximal tibia. An appropriate keel punch was made with the appropriate size tibial guide by myself on Gabriele MARTINEZ assisted by holding retractors. At this point appropriate size implants were chosen and opened. The joint was irrigated copiously with pulse lavage mechanical irrigation. The posterior capsule was infiltrated with local analgesic. The wound was irrigated with pulse lavage mechanical irrigation. We mixed antibiotic methylmethacrylate. We placed the knee into flexion. We placed multiple retractors assisted by Gabriele MARTINEZ to expose the proximal tibia. Once the methyl methacrylate was ready, the tibial component was cemented into place removing any excess methylmethacrylate form by both myself and Gabriele MARTINEZ. The femoral component was cemented into place removing the removing any excess methylmethacrylate performed by both myself and Gabriele MARTINEZ. We then inserted the appropriate size polyethylene tibial insert. We made sure that it was locked into position. We took the knee into full extension, and then back in a flexion making sure we had removed any excess methylmethacrylate. The patellar component was then cemented down and secured with clamp. Excess methylmethacrylate removed. We kept the knee in full extension, patellar clamp in position until methylmethacrylate had hardened. Once it had hardened the patellar clamp was removed. The knee was taken through full range of motion. The patella tracked nicely. There was good soft tissue balancing. The tourniquet was now released. Additional hemostasis was achieved via electrocautery. A second gram of TXA was given. The wound again was irrigated with pulse lavage mechanical irrigation. The superficial soft tissues were infiltrated local analgesic. The extensor mechanism was repaired with Vicryl. We checked the repair with range of motion and it was stable. The subcutaneous soft tissues were repaired with Vicryl in layers. The skin was approximated with pernio/Dermabond. Sterile dressings were applied followed by loose web roll and Agustín bandage. The patient was transferred to a bed, and taken to recovery in stable and satisfactory condition. Gabriele MARTINEZ assisted with this complex procedure.
[2020-01-31] MEDS: HYDROmorphone 0.5 MG/0.5 ML SYRINGE IVP PRN ×2 (14:50→15:19)
--- NOTE | 2020-01-31 15:19 | XR ---
EXAMINATION TYPE: XR knee limited LT DATE OF EXAM: 01/31/2020 CLINICAL HISTORY: Postoperative evaluation Two views of the left knee are submitted. Identified are changes of total knee arthroplasty with fem oral and tibial components appearing well seated. Postsurgical soft tissue changes are noted. Align ment is anatomic.
[2020-01-31] MEDS ORDERED: KETOROLAC 30 MG/ML 1 ML VIAL IVP ONE (15:24)
[2020-01-31] MEDS: LACTATED RINGERS 1,000 ML IV SCH (16:01)
[2020-01-31] MEDS ORDERED: SENNOSIDES-DOCUSATE SODIUM 1 EACH TAB PO SCH (21:00)
[2020-02-01] MEDS: LACTATED RINGERS 1,000 ML IV SCH ×2 (02:11→12:39)
[2020-02-01] MEDS: HYDROcodone/APAP 7.5-325MG 1 EACH TAB PO PRN ×2 (05:31→12:40)
[2020-02-01 06:35] VITALS: BP 109/66; PULSE 58; TEMP 98.1
[2020-02-01 06:48] LABS: Basophils % (A) 0 %; Eosinophils % (A) 0 %; HCT 36.7 % (34.0-46.0); HGB 11.5 gm/dL (11.4-16.0); Lymphocytes # (A) 1.3 k/uL (1.0-4.8); Lymphocytes % (A) 11 %; MCH 31.1 pg (25.0-35.0); MCHC 31.4 g/dL (31.0-37.0); MCV 98.8 fL (80.0-100.0); Mean Platelet Volume 7.7; Monocytes # (A) 0.7 k/uL (0-1.0); Monocytes % (A) 6 %; Neutrophils # (A) 9.4 k/uL (1.3-7.7); Neutrophils % (A) 82 %; Platelet Count 259 k/uL (150-450); RBC 3.71 m/uL (3.80-5.40); RDW 13.4 % (11.5-15.5); WBC 11.5 k/uL (3.8-10.6)
[2020-02-01] MEDS ORDERED: EZETIMIBE 10 MG TAB PO SCH (09:00)
[2020-02-01] MEDS ORDERED: ENOXAPARIN 30 MG/0.3 ML SYRINGE SQ SCH (09:00)
[2020-02-01] MEDS ORDERED: LISINOPRIL 5 MG TAB PO SCH (09:00)
--- NOTE | 2020-02-01 09:35 | P.CONS ---
History of Present Illness - History of Present Illness This is a pleasant 59 years old female with past medical history of hypertens ion, hyperlipidemia and osteoarthritis, presents for Left knee osteoarthritis, which failed outpatient therapy. Patient underwent total left knee arthroplasty. Today is postop day #1 Medical consult was requested for medical management. Patient was lying in bed, fully awake and oriented, pleasant and cooperative. Postoperatively patient denies chest pain or dyspnea, no abdominal pain, no nausea vomiting, no fever. She did not have bowel movement but she is passing gases. Her pain was controlled and patient was asking me if she can be discharged home today. Explained to the patient is up to the primary team CBC from today showing WBC of 11.5 K, hemoglobin 11.5, platelets 259 Review of Systems CONSTITUTIONAL: No fever, no malaise, no fatigue. HEENT: No recent visual problems or hearing problems. Denied any sore throat. CARDIOVASCULAR: No orthopnea, PND, no palpitations, no syncope. PULMONARY: No shortness of breath, no cough, no hemoptysis. GASTROINTESTINAL: No diarrhea, no nausea, no vomiting, no abdominal pain. Normoactive bowel sounds. NEUROLOGICAL: No headaches, no weakness, no numbness. HEMATOLOGICAL: Denies any bleeding or petechiae. GENITOURINARY: Denies any burning micturition, frequency, or urgency. MUSCULOSKELETAL/RHEUMATOLOGICAL: Denies any muscle swelling, or any muscle pain. ENDOCRINE: Denies any polyuria or polydipsia. Past Medical History Past Medical History: Hyperlipidemia, Hypertension, Osteoarthritis (OA) Additional Past Medical History / Comment(s): HX OF DIVERTICULITIS (HOSPITALIZED APR 2016), SCOLIOSIS, HX OF FX NECK (1989). , TORN LEFT SHOULDER ROTATOR CUFF, SLIDING HIATAL HERNIA. , gonorrhea- (1973) ., LIMITED ROM NECK. History of Any Multi-Drug Resistant Organisms: None Reported Past Surgical History: Hernia Repair, Orthopedic Surgery Additional Past Surgical History / Comment(s): TUBAL RECONSTRUCTION (1985), EGD, COLONOSCOPY with polyp. HIATAL HERNIA REPAIR, left total knee 01/31/20 Past Anesthesia/Blood Transfusion Reactions: No Reported Reaction Past Psychological History: No Psychological Hx Reported Smoking Status: Former smoker Past Alcohol Use History: Occasional Additional Past Alcohol Use History / Comment(s): QUIT SMOKING TODAY., HAS BEEN TRYING TO QUIT-4 CIGARETTES/DAY., SMOKED FOR APPROX 15 YEARS. QUIT FOR 20 YRS AND RESTARTED. Past Drug Use History: Marijuana Additional Drug Use History / Comment(s): DENIES CURRENT MARIJUANA USE. - Past Family History Father Family Medical History: Cancer, Diabetes Mellitus Additional Family Medical History / Comment(s): LUNG CANCER Mother Family Medical History: Dementia Additional Family Medical History / Comment(s): A cousin had colon cancer and grandfather had throat cancer. Medications and Allergies Home Medications Medication Instructions Recorded Confirmed Type Lisinopril [Zestril] 5 mg PO DAILY 09/21/16 01/31/20 History Calcium/Magnesium/Zinc 1 each PO DAILY 01/29/20 01/31/20 History [Hlnobtp-Fyzqiirip-Sotd Tablet] Ergocalciferol [Vitamin D2] 50,000 unit PO Q7D 01/29/20 01/31/20 History Ezetimibe [Zetia] 10 mg PO DAILY 01/29/20 01/31/20 History Ibuprofen [Motrin] 600 mg PO Q8HR PRN 01/29/20 01/31/20 History Allergies Allergy/AdvReac Type Severity Reaction Status Date / Time aspirin Allergy Unknown Swelling, Verified 01/31/20 11:55 Itching Penicillins Allergy Unknown STATES SHE Verified 01/31/20 11:55 FEELS WORSE. Physical Exam Vitals: Vital Signs Temp Pulse Pulse Resp BP Pulse Ox 02/01/20 06:34 98.1 F 58 L 16 109/66 98 01/31/20 22:02 96.9 F L 73 16 128/71 01/31/20 17:45 77 132/87 99 01/31/20 17:30 57 L 125/79 98 01/31/20 17:15 58 L 120/76 99 01/31/20 17:00 55 L 124/80 97 01/31/20 16:45 61 123/81 97 01/31/20 16:35 16 01/31/20 16:30 68 144/87 100 01/31/20 16:15 97.7 F 63 18 140/76 100 01/31/20 16:00 52 L 16 135/73 100 01/31/20 15:45 54 L 16 141/76 100 01/31/20 15:30 51 L 16 132/78 100 01/31/20 15:15 52 L 16 130/77 100 01/31/20 15:01 63 16 126/69 100 01/31/20 14:46 97.3 F L 83 16 113/64 96 01/31/20 13:50 57 L 16 130/80 100 01/31/20 11:58 98.6 F 60 16 133/77 100 Intake and Output 01/31/20 02/01/20 02/01/20 22:59 06:59 14:59 Intake Total 646 530 Balance 646 530 Intake: IV 250 Intake, IV Titration 50 Amount ceFAZolin 2 gm In Sodium 50 Chloride 0.9% 50 ml @ 100 mls/hr IVPB Q8H [facility] Rx#: [id number] Oral 396 480 Other: # Voids 1 1 GENERAL: The patient is alert and oriented x3, not in any acute distress. Well d eveloped, well nourished. HEENT: Pupils are round and equally reacting to light. EOMI. No scleral icterus. No conjunctival pallor. Normocephalic, atraumatic. No pharyngeal erythema. No thyromegaly. CARDIOVASCULAR: S1 and S2 present. No murmurs, rubs, or gallops. PULMONARY: Chest is clear to auscultation, no wheezing or crackles. ABDOMEN: Soft, nontender, nondistended, normoactive bowel sounds. No palpable organomegaly. -MUSCULOSKELETAL: No joint swelling or deformity. Left knee surgical site and the dressing, exam is deferred to surgical team EXTREMITIES: No cyanosis, clubbing, or pedal edema. NEUROLOGICAL: Gross neurological examination did not reveal any focal deficits. SKIN: No rashes. No petechiae Results CBC & Chem 7: 02/01/20 05:52 Labs: Abnormal Lab Results - Last 24 Hours (Table) 02/01/20 Range/Units 05:52 WBC 11.5 H (3.8-10.6) k/uL RBC 3.71 L (3.80-5.40) m/uL Neutrophils # 9.4 H (1.3-7.7) k/uL Assessment and Plan Assessment: Left knee osteoarthritis, status post left total knee arthroplasty Mild leukocytosis, mostly reactive Plan: This is a pleasant 59 years old female who presented for left knee total arthroplasty. Monitor the patient closely. Pain management and DVT prophylaxis as per surgical team. We recommend to monitor WBC, no need for antibiotics as there is no signs of infection Labs and medication were reviewed.. Continue same treatment. Continue with symptomatic treatment. Resume home medication. Monitor lytes and vitals. DVT and GI prophylaxis. Further recommendations of the clinical course of the patient Patient was instructed to follow up with her PCP Dr. edouard in one week and she agrees Thank you for consulting us
--- NOTE | 2020-02-01 11:01 | P.PN ---
Progress Note - Text The patient is status post left adductor canal catheter placement. The catheter was placed for postoperative pain control, status post total left knee arthroplasty. Ropivacaine 0.2% is infusing at 8 mLs per hour. The patient has no complaints of left lower extremity numbness or weakness. Patient's VAS score is 1 -10. Assessment: Patient's adductor canal catheter is in place and working appropriately. Plan: continue infusion and adjust it as needed.
--- NOTE | 2020-02-01 11:27 | P.PN ---
Subjective Progress Note Date: 02/01/20 Principal diagnosis: Status post left total knee arthroplasty Patient evaluated today at bedside, she is resting comfortably. She has no acute pain. She's tolerating physical therapy very well. She is very interested in going home today. She denies any chest pain, shortness of breath, fever or chills. Objective - Vital Signs Vital signs: Vital Signs Temp 98.1 F 02/01/20 06:34 Pulse 58 L 02/01/20 06:34 Resp 16 02/01/20 06:34 BP 109/66 02/01/20 06:34 Pulse Ox 98 02/01/20 06:34 Intake & Output 01/31/20 02/01/20 02/01/20 18:59 06:59 18:59 Intake Total 1647 630 Output Total 30 Balance 1617 630 Weight 61 kg Intake: IV 1351 Intake, IV Titration 50 Amount ceFAZolin 2 gm In Sodium 50 Chloride 0.9% 50 ml @ 100 mls/hr IVPB Q8H [facility] Rx#: [id number] Oral 296 580 Output: Estimated Blood Loss 30 Other: # Voids 1 - Exam Left lower extremity: Incision is clean, dry, and intact. The exofin fusion tape is in good condition. There is minimal soft tissue swelling and ecchymosis surrounding the medial and lateral aspects of the incision. Calf is soft, no tenderness with palpation. Plantar flexion, dorsiflexion, EHL, FHL are intact. Sensory exam to light touch throughout the extremity is intact, dorsal pedis pulses 2+. - Labs CBC & Chem 7: 02/01/20 05:52 Labs: Abnormal Lab Results - Last 24 Hours (Table) 02/01/20 Range/Units 05:52 WBC 11.5 H (3.8-10.6) k/uL RBC 3.71 L (3.80-5.40) m/uL Neutrophils # 9.4 H (1.3-7.7) k/uL Assessment and Plan Assessment: Status post left total knee arthroplasty Plan: Pain control, discharge home on oral medication GI and DVT prophylaxis, Eliquis 2.5mg bid Wound care instructions discussed Home physical therapy and nursing after discharge Icing and elevating techniques discussed Plan for discharge home today Time with Patient: Less than 30
--- NOTE | 2020-02-01 11:34 | P.DS ---
Providers Date of admission: 01/31/2020 Expected date of discharge: 02/01/20 Attending physician: Alfie Zepeda Consults: 01/31/20 14:41 Consult Physician Routine Consulting Provider: Ella Wesley Consult Reason/Comments: Medical management Do you want consulting provider notified?: Yes Primary care physician: Ekaterina [facility] Course: Date of admission: 01/31/2020 Date of discharge: Admission diagnosis: s/p left total knee arthroplasty Discharge diagnosis: same Attending physician: Dr. Zepeda Surgical procedures: Left total knee arthroplasty Brief history: Patient is a 59 year old with a history of progressive left knee osteoarthritis. At this point patient has failed conservative treatment measures and has opted to proceed with a elective left total knee arthroplasty. Hospital course: Details of patient's surgery can be found in operative report. Patient tolerated the procedure well and was subsequently transported to orthopedic floor. Patient's orthopeidc and medical care was provided daily. Patient had daily laboratory tests performed for evaluation of overall blood counts. Patient had daily physical therapy to include strengthening range of motion as well as education with walker ambulation. Patient had daily CPM usage as part of their physical therapy program. Patient was treated with Lovenox for their postoperative DVT prophylaxis during their inpatient stay. Patient was noted to have a relatively uneventful postoperative course. Patient reported satisfactory pain control with oral pain medications by postoperative day 0. Patient showed satisfactory progress with physical therapy. Patient moved steadily through the program and had no difficulty meeting the goals by postoperative day 1. Given patient's otherwise satisfactory course and having met physical therapy goals, plan is to discharge patient home on postoperative day 1. Discharge condition/disposition: Patient will be discharged home in stable condition. Discharge medications: Instructions are given on resumption of patient's normal daily medications per primary care recommendation, in addition patient will be prescribed [place] 7.5mg/325mg, Tramadol 50mg, Colace 100mg, Eliquis 2.5mg. Discharge instructions: 1. Wound care and infection precautions, keep incision dry and covered while showering, no lotions, creams, moisturizers. No soaking, tubs, pools, hottubs. Do not scrub over the incision. 2. Weight-bear as tolerated with walker / cane until follow-up. 3. Ice and elevate when necessary. Do not exceed 20 minutes per hour with ice pack. 4. Utilize compression sleeve until seen at first follow up appointment. 5. Visiting nursing care. 6. Home physical therapy including home CPM. 7. Pain meds and anticoagulants per prescription. 8. Pain medication has potential to cause constipation. Increase oral fluid and fiber intake. Contact primary care provider if you have not had a bowel movement within 48 hours after discharge 9. No anti-inflammatory medication until discussed at first post operative visit, this including Motrin, Aleve, Mobic, Diclofenac 10. Follow up in office at 2 weeks postop with Gabriele Craig PA-C 11. Follow up with your primary care doctor 7-10 days after discharge. 12. Contact [facility] with any questions, . Procedures: Left total knee arthroplasty Patient Condition at Discharge: Good Plan - Discharge Summary Discharge Rx Participant: Yes New Discharge Prescriptions: New Docusate [Colace] 100 mg PO DAILY #30 capsule Apixaban [Eliquis] 2.5 mg PO BID #60 tab HYDROcodone/APAP 7.5-325MG [[place] 7.5] 1 - 2 each PO Q6HR PRN #56 tab PRN Reason: Pain traMADol HCl [Ultram] 50 mg PO Q6H PRN #28 tab PRN Reason: Pain No Action Lisinopril [Zestril] 5 mg PO DAILY Ibuprofen [Motrin] 600 mg PO Q8HR PRN PRN Reason: Pain Ezetimibe [Zetia] 10 mg PO DAILY Ergocalciferol [Vitamin D2] 50,000 unit PO Q7D Calcium/Magnesium/Zinc [Eknexhw-Pusoipfwo-Kiza Tablet] 1 each PO DAILY Discharge Medication List Lisinopril [Zestril] 5 mg PO DAILY 09/21/16 [History] Calcium/Magnesium/Zinc [Iqizcet-Iapwnntdi-Vlrq Tablet] 1 each PO DAILY 01/29/20 [History] Ergocalciferol [Vitamin D2] 50,000 unit PO Q7D 01/29/20 [History] Ezetimibe [Zetia] 10 mg PO DAILY 01/29/20 [History] Ibuprofen [Motrin] 600 mg PO Q8HR PRN 01/29/20 [History] Apixaban [Eliquis] 2.5 mg PO BID #60 tab 02/01/20 [Rx] Docusate [Colace] 100 mg PO DAILY #30 capsule 02/01/20 [Rx] HYDROcodone/APAP 7.5-325MG [[place] 7.5] 1 - 2 each PO Q6HR PRN #56 tab 02/01/20 [Rx] traMADol HCl [Ultram] 50 mg PO Q6H PRN #28 tab 02/01/20 [Rx] Follow up Appointment(s)/Referral(s): [facility], [NON-STAFF] - Ekaterina Girard MD [Primary Care Provider] - 1 Week Andrew Craig PAC [PHYSICIAN [employer]] - 2 Weeks Patient Instructions/Handouts: *Surgery [facility] - On-Q Pain Pump Discharge Instructions, Joint Replacement Surgery (DC), Knee Replacement (DC) Discharge Disposition: HOME WITH HOME HEALTH SERVICES
[2020-02-05] MEDS ORDERED: ERGOCALCIFEROL 50,000 UNIT CAP PO SCH (09:00)
== END 2020-02-01 14:38 | disposition home or self-care (01) ==
LOC: OR 11:26 → 5NMEDONC 14:34 → OR 02-01 14:38
PROVIDERS: ATTEND Orthopaedic Surgery
DX: M17.12 Unilateral primary osteoarthritis, left knee (principal); I10 Essential (primary) hypertension; M19.90 Unspecified osteoarthritis, unspecified site; M41.9 Scoliosis, unspecified; D72.829 Elevated white blood cell count, unspecified; G89.29 Other chronic pain; M54.2 Cervicalgia; E78.2 Mixed hyperlipidemia; K21.9 Gastro-esophageal reflux disease without esophagitis; Z87.891 Personal history of nicotine dependence; Z79.899 Other long term (current) drug therapy; Z88.0 Allergy status to penicillin; Z88.6 Allergy status to analgesic agent; Z88.8 Allergy status to other drugs, medicaments and biological substances; Z87.19 Personal history of other diseases of the digestive system; Z98.890 Other specified postprocedural states; Z82.49 Family history of ischemic heart disease and other diseases of the circulatory system; Z83.3 Family history of diabetes mellitus; Z80.1 Family history of malignant neoplasm of trachea, bronchus and lung; Z81.8 Family history of other mental and behavioral disorders; Z80.0 Family history of malignant neoplasm of digestive organs; Z80.8 Family history of malignant neoplasm of other organs or systems
CPT/HCPCS: 97162; 64448; 76942; 85025; 88300; 73560; 27447; C1776; C1713; J2250; J0171; J1100; J0690 ×3; J2405; J2001; J3010; J1885; J1650; J2795 ×2; J0330; J2704; J0735; J1170

== ENCOUNTER 2020-05-04 08:23 | Day surgery (SDC) | payer MEDICARE, OTHER ==
[2020-04-28 17:56] VITALS: BMI 24.1
--- NOTE | 2020-05-03 13:38 | HP ---
HISTORY AND PHYSICAL DATE OF SURGERY: 05/04/2020 HISTORY OF PRESENT ILLNESS: Nela Kruger is a 59-year-old patient seen with left knee adhesions/stiffness with history of previous total knee arthroplasty. We discussed options. She elected to proceed with manipulation under anesthesia of the left knee with steroid injection. Consent regarding the procedure was obtained. PAST MEDICAL HISTORY: Hypertension. PAST SURGICAL HISTORY: Herniorrhaphy, left total knee arthroplasty. DAILY MEDICATIONS: Lisinopril. ALLERGIES: Aspirin, pravastatin. SOCIAL HISTORY: Smokes 1/4 pack cigarettes daily. PHYSICAL EXAMINATION: Evaluation of the left knee. She has well-healed anterior incision. Range of motion is -2 to 90. Ligaments are stable. Hip rotation without pain. [place] and [place] negative. Distal neurovascular exam is intact left knee. RADIOGRAPHS: Left knee radiographs revealed a stable appearing total knee arthroplasty. IMPRESSION: 1. Left knee adhesions/stiffness. 2. History of left total knee arthroplasty. 3. Hypertension. 4. Tobacco use. PLAN: Manipulation under anesthesia of the left knee with steroid injection. MMODL / IJN: [id number] /
[~2020-05-04 08:23] MED LIST changes: -ACETAMINOPHEN TAB 500 MG TAB PO ONE; +HYDROmorphone 0.5 MG/0.5 ML SYRINGE IVP PRN; -LIDOCAINE 1% (10MG/ML) FOR IV START INTRADERMA PRN; -MELOXICAM 7.5 MG TAB PO ONE; +MIDAZOLAM 2 MG/2 ML VIAL IV PRN; -ROPIVACAINE 246.25 MG, EPINEPHrine 0.5 MG, KETOROLAC 30 MG, cloNIDine HCL/PF 80 MCG, WA... MISCELLANE ONE; -TRANEXAMIC ACID 1,000 MG in SODIUM CHLORIDE 0.9% 100 ML IVPB ONE
[2020-05-04 08:38] VITALS: TEMP 97.8
[2020-05-04] MEDS ORDERED: ONDANSETRON 4 MG/2 ML VIAL ONE (08:41)
[2020-05-04] MEDS ORDERED: LACTATED RINGERS 1,000 ML IV ONE (08:48)
[2020-05-04] MEDS ORDERED: ceFAZolin 1,000 MG VIAL IV ONE (09:15)
[2020-05-04] MEDS ORDERED: fentaNYL (PF) 50 MCG/ML 2 ML AMP ONE ×2 (09:16)
[2020-05-04] MEDS ORDERED: MIDAZOLAM 2 MG/2 ML VIAL ONE ×2 (09:16)
[2020-05-04] MEDS ORDERED: PROPOFOL 10 MG/ML 20 ML VIAL IV ONE ×2 (09:16)
[2020-05-04] MEDS ORDERED: LIDOCAINE 1% INJ 10MG/ML (20 ML MDV) ONE ×2 (09:16)
[2020-05-04 09:21] VITALS: RESP 16
--- NOTE | 2020-05-04 09:29 | P.OP ---
Date of Procedure: 05/04/20 Preoperative Diagnosis: Left knee adhesions Postoperative Diagnosis: Left knee adhesions Procedure(s) Performed: Manipulation under anesthesia left knee with steroid injection Anesthesia: MAC, local Surgeon: Alfie Zepeda Estimated Blood Loss (ml): 0 Pathology: none sent Condition: stable Disposition: PACU Indications for Procedure: 59-year-old patient seen with persistent left knee adhesions. After treatment options were discussed, she elected to proceed with manipulation under anesthesia with steroid injection. Operative Findings: see description of procedure Description of Procedure: The patient was taken to a monitored anesthesia care. The patient underwent IV sedation by the department of anesthesia. The patient did received preoperative IV antibiotics. Once sufficient anesthesia was noted a manipulation of the left hip was performed with audible tearing of the adhesions. Had achieved full extension and 140 of flexion. The superior lateral aspect of the knee was prepped and draped in the normal sterile orthopedic fashion. A solution 1 mL Depo-Medrol and 3 mL quarter percent Marcaine were injected into the joint under sterile technique. A sterile Band-Aid was applied. The knee was again taken through full range of motion. The patient was awakened having tolerated procedure well.
[2020-05-04] MEDS: HYDROmorphone 0.5 MG/0.5 ML SYRINGE IVP ONE ×3 (09:40→09:46)
[2020-05-04 10:19] VITALS: BP 112/52; PULSE 62
== END 2020-05-04 10:43 | disposition home or self-care (01) ==
LOC: OR 08:23
PROVIDERS: ATTEND Orthopaedic Surgery
DX: M23.8X2 Other internal derangements of left knee (principal); I10 Essential (primary) hypertension; E78.5 Hyperlipidemia, unspecified; F17.210 Nicotine dependence, cigarettes, uncomplicated; Z98.890 Other specified postprocedural states; Z87.19 Personal history of other diseases of the digestive system; Z96.652 Presence of left artificial knee joint; Z79.899 Other long term (current) drug therapy; Z88.6 Allergy status to analgesic agent; Z88.8 Allergy status to other drugs, medicaments and biological substances; Z88.0 Allergy status to penicillin; Z97.2 Presence of dental prosthetic device (complete) (partial)
CPT/HCPCS: 27570; 20610; J2250; J1100; J2405; J0690; J2001; J3010; J2704; J1170

== ENCOUNTER 2021-08-26 09:52 | Day surgery (SDC) | payer MEDICARE, OTHER ==
[2021-08-24 10:48] VITALS: BMI 28.6
[~2021-08-26 09:52] MED LIST changes: -DEXAMETHASONE SOD PHOSPHATE 10 MG/ML 1 ML VIAL IV ONE; -HYDROmorphone 0.5 MG/0.5 ML SYRINGE IVP PRN; +LIDOCAINE 1% (10MG/ML) FOR IV START INTRADERMA PRN; -MIDAZOLAM 2 MG/2 ML VIAL IV PRN; -ONDANSETRON 4 MG/2 ML VIAL IVP ONE; -SCOPOLAMINE 1.5MG/72HR PATCH TRANSDERM ONE
[2021-08-26 10:34] VITALS: TEMP 97
[2021-08-26] MEDS ORDERED: PROPOFOL 10 MG/ML 20 ML VIAL IV ONE (11:43)
--- NOTE | 2021-08-26 11:45 | P.GSHP ---
History of Present Illness H&P Date: 08/26/21 Chief Complaint: Change in bowel habit, diarrhea Is a 61-year-old female said complaints of increasing diarrhea. Patient rents today for colonoscopy Past Medical History Past Medical History: Hyperlipidemia, Hypertension, Osteoarthritis (OA) Additional Past Medical History / Comment(s): HX OF DIVERTICULITIS, SCOLIOSIS, HX OF FX NECK(1989), TORN LEFT SHOULDER ROTATOR CUFF, SLIDING HIATAL HERNIA. History of Any Multi-Drug Resistant Organisms: None Reported Past Surgical History: Hernia Repair, Orthopedic Surgery Additional Past Surgical History / Comment(s): TUBAL RECONSTRUCTION (1985), EGD, COLONOSCOPY with polyp. HIATAL HERNIA REPAIR, left total knee replacement. Past Anesthesia/Blood Transfusion Reactions: No Reported Reaction Past Psychological History: No Psychological Hx Reported Smoking Status: Former smoker Past Alcohol Use History: Occasional Additional Past Alcohol Use History / Comment(s): SMOKED <1/2 PPD. STARTED SMOKING AT AGE 38. QUIT FOR 20 YRS AND RESTARTED, QUIT AGAIN 3 MONTHS AGO. Past Drug Use History: Marijuana Additional Drug Use History / Comment(s): Marijuana use once in awhile. Aware no use 24 hrs prior o procedure. - Past Family History Father Family Medical History: Cancer, Diabetes Mellitus Additional Family Medical History / Comment(s): LUNG CANCER. Mother Family Medical History: Dementia Additional Family Medical History / Comment(s): A cousin had colon cancer and grandfather had throat cancer. Medications and Allergies Home Medications Medication Instructions Recorded Confirmed Type lisinopriL [Zestril] 15 mg PO QAM 09/21/16 08/26/21 History Ezetimibe [Zetia] 10 mg PO DAILY 01/29/20 08/26/21 History lisinopriL 10 mg PO 1600 08/24/21 08/26/21 History Allergies Allergy/AdvReac Type Severity Reaction Status Date / Time aspirin Allergy Unknown Swelling, Verified 08/26/21 10:28 Itching Penicillins Allergy Unknown STATES SHE Verified 08/26/21 10:28 FEELS WORSE. SWELLING PER PATIENT Surgical - Exam Vital Signs Temp Pulse Resp BP Pulse Ox 97 F L 80 18 114/82 99 08/26/21 10:32 08/26/21 10:32 08/26/21 10:32 08/26/21 10:32 08/26/21 10:32 - General well developed, well nourished, no distress - Eyes PERRL - ENT normal pinna - Neck no masses - Respiratory normal expansion - Cardiovascular Rhythm: regular - Abdomen Abdomen: soft, non tender Assessment and Plan Assessment: Change in bowel habits, diarrhea. We'll perform colonoscopy
--- NOTE | 2021-08-26 11:57 | P.OP ---
Date of Procedure: 08/26/21 Preoperative Diagnosis: Change in bowel habits, diarrhea Postoperative Diagnosis: Normal colonoscopy Procedure(s) Performed: Colonoscopy Anesthesia: MAC Surgeon: Anurag Simpson Pathology: none sent Condition: stable Disposition: PACU Description of Procedure: Patient's placed on the endoscopy table in the lateral position. She received IV sedation. Digital rectal exam was performed which revealed no abnormalities. Flexible colonoscope was then placed patient anus passed throughout the entire colon. The ileocecal valve was visualized. The cecum, ascending and transverse colon appeared normal. The descending and sigmoid colon appeared normal. The scope was brought back into the rectum was normal. Scope withdrawn for patient. There is no inflammatory changes of the colon seen.
[2021-08-26 12:05] VITALS: RESP 16
[2021-08-26 12:16] VITALS: BP 108/79; PULSE 78
== END 2021-08-26 12:33 | disposition home or self-care (01) ==
LOC: ORWHC2ENDO 09:52
PROVIDERS: ATTEND Surgery
DX: R19.4 Change in bowel habit (principal); R19.7 Diarrhea, unspecified; E78.5 Hyperlipidemia, unspecified; I10 Essential (primary) hypertension; M15.4 Erosive (osteo)arthritis; Z87.19 Personal history of other diseases of the digestive system; G35 Multiple sclerosis; M41.9 Scoliosis, unspecified; Z98.890 Other specified postprocedural states; Z96.652 Presence of left artificial knee joint; Z87.891 Personal history of nicotine dependence; Z83.3 Family history of diabetes mellitus; Z80.1 Family history of malignant neoplasm of trachea, bronchus and lung; Z81.8 Family history of other mental and behavioral disorders; Z80.0 Family history of malignant neoplasm of digestive organs; Z79.899 Other long term (current) drug therapy; Z88.6 Allergy status to analgesic agent; Z88.0 Allergy status to penicillin
CPT/HCPCS: 45378; J2704

== ENCOUNTER → 2021-11-18 | Outpatient (CLI) | payer MEDICARE, OTHER ==
--- NOTE | 2021-11-18 21:14 | CT ---
EXAMINATION TYPE: CT abdomen pelvis w con DATE OF EXAM: 11/18/2021 COMPARISON: CT dated 03/05/2017 HISTORY: LT side pain, hx diverticulitis. CT DLP: 678.70 mGycm Automated exposure control for dose reduction was used. TECHNIQUE: Helical acquisition of images was performed from the lung bases through the pelvis. CONTRAST: Performed with Oral Contrast and with IV Contrast, patient injected with 100 mL of Isovue 300. FINDINGS: LUNG BASES: No significant abnormality is appreciated. LIVER/GB: No significant abnormality is appreciated. PANCREAS: No significant abnormality is seen. SPLEEN: No significant abnormality is seen. ADRENALS: No significant abnormality is seen. KIDNEYS: No significant abnormality is seen. FREE AIR: No free air is visualized. RETROPERITONEAL ADENOPATHY: No pathologically enlarged lymph nodes. REPRODUCTIVE ORGANS: No gross uterine or adnexal mass. Suspected adhesions between the sigmoid colon and the left adnexa. URINARY BLADDER: No significant abnormality is seen. PELVIC ADENOPATHY: No pathologically enlarged lymph nodes. OSSEOUS STRUCTURES: Levoscoliosis of the lumbar spine with severe degenerative changes. No aggressiv e bone lesion. BOWEL: Previous fundoplication of the stomach with small hiatal hernia. Unremarkable remainder of th e stomach and duodenum. Fecalization of the distal ileal loops. Severe diverticulosis of the sigmoid colon with thickened wall, small underlying lesion cannot be excluded. No evidence of acute diverticu litis. Moderate to marked fecal loading of the colon suggestive of constipation. Normal appendix. OTHER: Scattered arterial atherosclerotic calcifications. No sizable ascites. IMPRESSION: Severe diverticulosis of the sigmoid colon with thickened wall, small underlying lesion can't be excl uded, please correlate with coloscopy results. Moderate to marked fecal loading of the colon suggesti ve of constipation. Other incidental findings as described above.
== END | disposition home or self-care (01) ==
LOC: RADCTMAIN 15:20
PROVIDERS: ATTEND Surgery
DX: K57.33 Diverticulitis of large intestine without perforation or abscess with bleeding (principal); K57.30 Diverticulosis of large intestine without perforation or abscess without bleeding
CPT/HCPCS: 74177; Q9967

== ENCOUNTER 2022-04-20 08:13 | Day surgery (SDC) | payer MEDICARE, OTHER ==
[2022-04-18 09:00] VITALS: BMI 25.6
--- NOTE | 2022-04-20 08:04 | P.GSHP ---
History of Present Illness H&P Date: 04/20/22 CHIEF COMPLAINT: Colon screen HISTORY OF PRESENT ILLNESS: The patient is a 61-year-old female who presents for colon screen. Lower endoscopy was offered for further evaluation and management. PAST MEDICAL HISTORY: Please see list. PAST SURGICAL HISTORY: Please see list. MEDICATIONS: Please see list. ALLERGIES: Please see list. SOCIAL HISTORY: No illicit drug use FAMILY HISTORY: No reports of Crohn disease or ulcerative colitis. REVIEW OF ORGAN SYSTEMS: CONSTITUTIONAL: No reports of fevers or chills. PHYSICAL EXAM: VITAL SIGNS: Stable GENERAL: Well-developed pleasant in no acute distress. HEENT: No scleral icterus. Extraocular movements grossly intact. Moist buccal mucosa. NECK: Supple without lymphadenopathy. CHEST: Unlabored respirations. Equal bilateral excursions. CARDIOVASCULAR: Regular rate and rhythm. Distal 2+ pulses. ABDOMEN: Soft, nontender, nondistended. MUSCULOSKELETAL: No clubbing, cyanosis, or edema. ASSESSMENT: 1. Colon screen. PLAN: 1. Recommend proceeding with a lower endoscopy Past Medical History Past Medical History: Hyperlipidemia, Hypertension, Osteoarthritis (OA) Additional Past Medical History / Comment(s): HX OF DIVERTICULITIS, SCOLIOSIS, HX OF FX NECK(1989), TORN LEFT SHOULDER ROTATOR CUFF, SLIDING HIATAL HERNIA. constipation History of Any Multi-Drug Resistant Organisms: None Reported Past Surgical History: Hernia Repair, Joint Replacement Additional Past Surgical History / Comment(s): TUBAL RECONSTRUCTION (1985), EGD, COLONOSCOPY with polyp. HIATAL HERNIA REPAIR, left total knee replacement. Past Anesthesia/Blood Transfusion Reactions: No Reported Reaction Smoking Status: Former smoker - Past Family History Father Family Medical History: Cancer Additional Family Medical History / Comment(s): LUNG CANCER. Mother Family Medical History: Dementia Additional Family Medical History / Comment(s): A cousin had colon cancer and grandfather had throat cancer. Medications and Allergies Home Medications Medication Instructions Recorded Confirmed Type Ezetimibe [Zetia] 10 mg PO DAILY 01/29/20 04/18/22 History lisinopriL [Prinivil] 10 mg PO QAM 08/24/21 04/18/22 History Acetaminophen [Tylenol Extra 500 mg PO DIRECTED PRN 04/18/22 04/18/22 History Strength] Allergies Allergy/AdvReac Type Severity Reaction Status Date / Time aspirin Allergy Unknown Swelling, Verified 04/18/22 08:52 Itching, SOB Penicillins Allergy Unknown STATES SHE Verified 04/18/22 08:52 FEELS WORSE. SWELLING PER PATIENT
[2022-04-20 08:39] VITALS: TEMP 96.9
[2022-04-20] MEDS ORDERED: PROPOFOL 10 MG/ML 20 ML VIAL IV ONE (08:53)
[2022-04-20 09:22] VITALS: RESP 16
--- NOTE | 2022-04-20 09:28 | P.PCN ---
Date of Procedure: 04/20/22 Description of Procedure: PREOPERATIVE DIAGNOSIS: Personal history of colon polyps POSTOPERATIVE DIAGNOSIS: Tubular adenoma cecum Tubular adenoma ascending colon Tubular adenoma sigmoid colon Sigmoid diverticulosis Sigmoid diverticulitis OPERATION: Colonoscopy to the ileocecal valve and appendiceal orifice, cecum Colonoscopy with cold forceps biopsy SURGEON: Vicky Chang MD. ANESTHESIA: MAC. INDICATIONS: The patient is an 61-year-old male who presents family history of malignant colon polyps and personal history of colon polyps. Last colonoscopy 5 years. Benefits and risks were described and informed consent was obtained. DESCRIPTION OF PROCEDURE: The patient had undergone Sutab prep. The patient had been brought into the operating room and laid in the left lateral decubitus position. After adequate intravenous sedation, the rectum was examined with 2% lidocaine jelly. No ext ernal hemorrhoids were encountered. The rectal tone was within normal limits. No lesions were palpated in the rectal vault. An Olympus colonoscope was advanced until the cecum, ileocecal valve and appendiceal orifice were clearly viewed. The prep was good. Sigmoid diverticulosis with diverticulitis was encountered. The sigmoid colon was highly redundant requiring abdominal wall pressure. Colon ic polyps were found and removed. No evidence of focal colitis was found. Retroflexion of the scope demonstrated grade 1 internal hemorrhoids without active bleeding or inflammation. The colon was desufflated. The patient had tolerated the procedure well. Withdrawal time was over 6 minutes. FINDINGS: Aronchick preparation quality scale 2 (1-5) Internal hemorrhoids, grade 1 No external hemorrhoids No arteriovenous malformations. Sigmoid diverticulosis with recent diverticulitis Removal of 5 polyps: - Cold forceps biopsy at 15 x 2 cm from the anal verge, 3 to 4 mm polyp, sigmoid colon - Cold forceps biopsy at 20 cm from the anal verge, 5 mm polyp, sigmoid colon - Cold forceps biopsy at cecum, 4 mm polyp. - Cold forceps biopsy at ascending colon, 3 mm polyp. No focal colitis. RECOMMENDATIONS: Colonoscopy in 3 years, 2024 Plan - Discharge Summary New Discharge Prescriptions: Continue Ezetimibe [Zetia] 10 mg PO DAILY lisinopriL [Prinivil] 10 mg PO QAM Acetaminophen [Tylenol Extra Strength] 500 mg PO DIRECTED PRN PRN Reason: Pain Discharge Medication List Ezetimibe [Zetia] 10 mg PO DAILY 01/29/20 [History] lisinopriL [Prinivil] 10 mg PO QAM 08/24/21 [History] Acetaminophen [Tylenol Extra Strength] 500 mg PO DIRECTED PRN 04/18/22 [History] Follow up Appointment(s)/Referral(s): Vicky Chang MD [STAFF PHYSICIAN] - 05/03/22 Patient Instructions/Handouts: *Sur[facility] - (Anesthesia) Endoscopy Discharge Instructions, Diverticulosis (DC), Colorectal Polyps (GEN), Diverticulitis Diet (GEN), Diverticulosis Diet (GEN), Colonoscopy (DC) Activity/Diet/Wound Care/Special Instructions: Repeat colonoscopy in 3 years, 2024 Discharge Disposition: HOME SELF-CARE
[2022-04-20 09:36] VITALS: BP 122/83; PULSE 57
== END 2022-04-20 10:04 | disposition home or self-care (01) ==
LOC: ORWHC2ENDO 08:13
PROVIDERS: ATTEND Surgery Plastic and Reconstructive Surgery
DX: Z12.11 Encounter for screening for malignant neoplasm of colon (principal); K63.5 Polyp of colon; K57.30 Diverticulosis of large intestine without perforation or abscess without bleeding; K64.0 First degree hemorrhoids; Z86.010 Personal history of colon polyps; I10 Essential (primary) hypertension; E78.5 Hyperlipidemia, unspecified; Z88.0 Allergy status to penicillin; Z88.6 Allergy status to analgesic agent; M41.9 Scoliosis, unspecified; M19.90 Unspecified osteoarthritis, unspecified site; Z87.19 Personal history of other diseases of the digestive system; Z87.891 Personal history of nicotine dependence; Z80.0 Family history of malignant neoplasm of digestive organs; Z80.1 Family history of malignant neoplasm of trachea, bronchus and lung; Z80.8 Family history of malignant neoplasm of other organs or systems; Z79.899 Other long term (current) drug therapy; Z83.3 Family history of diabetes mellitus; Z81.8 Family history of other mental and behavioral disorders
CPT/HCPCS: 88305; 45380; J2704

== ENCOUNTER → 2022-05-17 | Outpatient (CLI) | payer MEDICARE, OTHER ==
[2022-05-17 15:17] VITALS: BP 163/95; PULSE 87; RESP 17; TEMP 98
--- NOTE | 2022-05-17 16:08 | P.HPOB ---
History of Present Illness H&P Date: 05/17/22 Chief Complaint: The patient is here for her routine gynecologic exam. This is a 61-year-old 012 with an LMP of 2012. The patient is without gynecologic complaints and denies any postmenopausal bleeding. Review of Systems Weight has been stable. She denies respiratory, cardiac, or GI problems. Past Medical History Past Medical History: Hyperlipidemia, Hypertension, Osteoarthritis (OA) Additional Past Medical History / Comment(s): HX OF DIVERTICULITIS, SCOLIOSIS, HX OF FX NECK(1989), TORN LEFT SHOULDER ROTATOR CUFF, SLIDING HIATAL HERNIA. History of Any Multi-Drug Resistant Organisms: None Reported Past Surgical History: Hernia Repair, Joint Replacement Additional Past Surgical History / Comment(s): TUBAL RECONSTRUCTION (1985), EGD, COLONOSCOPY with polyp removal 2021(next after 3-5yr). HIATAL HERNIA REPAIR, left total knee replacement. Past Anesthesia/Blood Transfusion Reactions: No Reported Reaction Past Psychological History: No Psychological Hx Reported Smoking Status: Current every day smoker (About 1 pack per week) Past Alcohol Use History: Occasional Additional Past Alcohol Use History / Comment(s): STARTED SMOKING AT AGE 38. QUIT FOR 20 YRS AND RESTARTED Past Drug Use History: Marijuana (Does not smoke marijuana every day.) Additional Drug Use History / Comment(s): Marijuana use once in awhile. Aware no use 24 hrs prior o procedure. Additional History: She is single and has been with her boyfriend for more than 30 years. She lives with him. They are not sexually active. 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 - Past Family History Father Family Medical History: Cancer Additional Family Medical History / Comment(s): LUNG CANCER. Mother Family Medical History: Dementia Additional Family Medical History / Comment(s): A cousin had colon cancer and grandfather had throat cancer. Medications and Allergies Home Medications Medication Instructions Recorded Confirmed Type Ezetimibe [Zetia] 10 mg PO DAILY 01/29/20 05/17/22 History lisinopriL [Prinivil] 10 mg PO QAM 08/24/21 05/17/22 History Acetaminophen [Tylenol Extra 500 mg PO DIRECTED PRN 04/18/22 05/17/22 History Strength] Allergies Allergy/AdvReac Type Severity Reaction Status Date / Time aspirin Allergy Unknown Swelling, Verified 05/17/22 15:12 Itching, SOB Penicillins Allergy Unknown STATES SHE Verified 05/17/22 15:12 FEELS WORSE. SWELLING PER PATIENT Exam Vital Signs Temp Pulse Resp BP Pulse Ox 05/17/22 15:16 98 F 87 17 163/95 99 05/17/22 15:13 98.0 F 18 Intake and Output 05/17/22 05/17/22 05/17/22 06:59 14:59 22:59 Other: Weight 61.689 kg Height 5 foot 1 inch, weight 136 pounds, BMI 25.7. This is a well-developed well-nourished white female who is alert and oriented times 3 in no acute distress. HEENT: Within normal limits. NECK: Supple without mass or thyromegaly. CHEST AND LUNGS: Clear to auscultation. HEART: Regular rate and rhythm. BREASTS: Are without mass or discharge. AXILLARY EXAM: Negative for adenopathy. BACK: Negative for CVA tenderness. There is a lipoma to the right of the midline measuring approximately 4 x 3 x 2 cm. This is nontender. There is no erythema. ABDOMEN: Soft, nontender, without palpable masses. PELVIC EXAM: Normal external genitalia with mild atrophy. There is a small lipoma measuring approximately 1.5 cm on the left Buttock which is stable from her previous exam. Cervix and vagina appear normal with mild atrophy. There is no unusual discharge. There is no evidence of prolapse. The uterus is midposition, nongravid size and nontender. There are no palpable adnexal masses or tenderness. RECTAL EXAM: Rectovaginal exam is negative for mass or tenderness and is negative for occult blood. EXTREMITIES: Nontender. IMPRESSION: 1. 61-year-old menopausal female with normal gynecologic exam. 2. Benign-appearing stable lipoma on the left buttock and right back. 3. Elevated blood pressure. PLAN: 1. Pap smear cotest was performed. 2. Self breast awareness was discussed with the patient. We have also discussed symptoms associated with inflammatory breast cancer. 3. Screening mammogram is due and the order slip was given to the patient for this. 4. Osteoporosis prevention was discussed. I have stressed the importance of adequate calcium, vitamin D and regular exercise. Recommended amounts of calcium and vitamin D were also discussed. I have recommended bone density testing. The order slip was given to the patient for this. She states she will try to do this on the same day as her mammogram. 5. I have recommended that she try to quit smoking. We have discussed many reasons why this is important. She states she will try. 6. She has not had a Covid vaccination nor has she had Covid. I have recommended that she look into getting the Covid vaccination and we've discussed reasons why this is important. She adamantly states she will not get a Covid vaccination. 7. We have discussed her elevated blood pressure. I have recommended checking her own blood pressure at home on a regular basis and following up with her PCP for blood pressure elevations. 8. She was advised to return in one year for her annual well woman exam.
== END ==
LOC: WWCWWP 15:07
PROVIDERS: ATTEND Obstetrics & Gynecology
DX: Z01.419 Encounter for gynecological examination (general) (routine) without abnormal findings (principal); D17.24 Benign lipomatous neoplasm of skin and subcutaneous tissue of left leg; E78.5 Hyperlipidemia, unspecified; I10 Essential (primary) hypertension; M19.90 Unspecified osteoarthritis, unspecified site; F17.200 Nicotine dependence, unspecified, uncomplicated; Z88.6 Allergy status to analgesic agent; Z88.0 Allergy status to penicillin

== ENCOUNTER 2023-09-25 18:18 | Emergency (ER) | payer MEDICARE, OTHER ==
[2023-09-25 18:41] VITALS: BP 137/81; PULSE 80; RESP 18; TEMP 98.4
[2023-09-25 19:27] LABS: Basophils % (A) 1 %; Eosinophils # (A) 0.1 k/uL (0-0.7); Eosinophils % (A) 2 %; HGB 13.8 gm/dL (11.4-16.0); Lymphocytes # (A) 1.7 k/uL (1.0-4.8); Lymphocytes % (A) 32 %; MCH 32.1 pg (25.0-35.0); MCHC 33.5 g/dL (31.0-37.0); MCV 95.6 fL (80.0-100.0); Mean Platelet Volume 7.4; Monocytes # (A) 0.4 k/uL (0-1.0); Monocytes % (A) 7 %; Neutrophils # (A) 2.9 k/uL (1.3-7.7); Neutrophils % (A) 55 %; Platelet Count 313 k/uL (150-450); RBC 4.29 m/uL (3.80-5.40); RDW 12.6 % (11.5-15.5); WBC 5.3 k/uL (3.8-10.6)
[2023-09-25 19:37] LABS: ALT 24 U/L (4-34); AST 34 U/L (14-36); African American GFR (CKD) >90 (>60 ml/min/1.73 sqM); Albumin 4.3 g/dL (3.5-5.0); Alkaline Phosphatase 99 U/L (38-126); Anion Gap 15 mmol/L; Blood Urea Nitrogen 13 mg/dL (7-17); Calcium 9.3 mg/dL (8.4-10.2); Carbon Dioxide 18 mmol/L (22-30); Chloride 108 mmol/L (98-107); Glucose 85 mg/dL (74-99); Magnesium 2.1 mg/dL (1.6-2.3); Non-African American GFR(CKD) >90 (>60 ml/min/1.73 sqM); Potassium 4.1 mmol/L (3.5-5.1); Sodium 141 mmol/L (137-145); Total Bilirubin 0.4 mg/dL (0.2-1.3); Total Protein 7.2 g/dL (6.3-8.2)
[2023-09-25 19:54] LABS: INR 0.9 (<1.2); Partial Thromboplastin Time 25.9 sec (22.0-30.0); Prothrombin Time 9.9 sec (10.0-12.5)
--- NOTE | 2023-09-25 20:47 | ED ---
General Adult HPI - General Chief complaint: Chest Pain Stated complaint: Chest Pain- Fall Time Seen by Provider: 09/25/23 20:46 Source: patient, RN notes reviewed Mode of arrival: ambulatory Limitations: no limitations - History of Present Illness Initial comments: 63 year old female presents to the emergency department for evaluation of right sided chest discomfort. Patient states that this started a little over 1 week ago. Patient states that she fell off a ladder on [place] [address] and note that the pain started about 1 week after this incident. - Related Data Home Medications Medication Instructions Recorded Confirmed Ezetimibe [Zetia] 10 mg PO DAILY 01/29/20 05/17/22 lisinopriL [Prinivil] 10 mg PO QAM 08/24/21 05/17/22 Acetaminophen [Tylenol Extra 500 mg PO DIRECTED PRN 04/18/22 05/17/22 Strength] Allergies Allergy/AdvReac Type Severity Reaction Status Date / Time aspirin Allergy Unknown Swelling, Verified 09/25/23 18:31 Itching, SOB Penicillins Allergy Unknown STATES SHE Verified 09/25/23 18:31 FEELS WORSE. SWELLING PER PATIENT Review of Systems ROS Statement: Those systems with pertinent positive or pertinent negative responses have been documented in the HPI. ROS Other: All systems not noted in ROS Statement are negative. Past Medical History Past Medical History: Hyperlipidemia, Hypertension, Osteoarthritis (OA) Additional Past Medical History / Comment(s): HX OF DIVERTICULITIS, SCOLIOSIS, HX OF FX NECK(1989), TORN LEFT SHOULDER ROTATOR CUFF, SLIDING HIATAL HERNIA. History of Any Multi-Drug Resistant Organisms: None Reported Past Surgical History: Hernia Repair, Joint Replacement Additional Past Surgical History / Comment(s): TUBAL RECONSTRUCTION (1985), EGD, COLONOSCOPY with polyp removal 2021(next after 3-5yr). HIATAL HERNIA REPAIR, left total knee replacement. Past Anesthesia/Blood Transfusion Reactions: No Reported Reaction Past Psychological History: No Psychological Hx Reported Smoking Status: Current every day smoker Past Alcohol Use History: Occasional Past Drug Use History: Marijuana - Past Family History Father Family Medical History: Cancer Additional Family Medical History / Comment(s): LUNG CANCER. Mother Family Medical History: Dementia Additional Family Medical History / Comment(s): A cousin had colon cancer and grandfather had throat cancer. General Exam - General Exam Comments Initial Comments: Visual Physical Exam Vital signs reviewed General: Well-appearing, nontoxic, no acute distress. Head: Normocephalic, atraumatic Eyes: PERRLA, EOMI ENT: Airway patent Chest: Nonlabored breathing Skin: No visual rash, normal skin tone Neuro: Alert and oriented 3 Musculoskeletal: No gross abnormalities Limitations: no limitations Course Vital Signs 09/25/23 18:29 Temperature 98.4 F Pulse Rate 80 Respiratory 18 Rate Blood Pressure 137/81 O2 Sat by Pulse 98 Oximetry Medical Decision Making - Medical Decision Making Quick note preformed by Jo Gayle PA-C Patient left prior to room placement and full evaluation. Therefore, AMA. - Lab Data Result diagrams: 09/25/23 19:19 09/25/23 19:19 Lab Results 09/25/23 09/25/23 09/25/23 Range/Units 19:19 19:19 19:19 WBC 5.3 (3.8-10.6) k/uL RBC 4.29 (3.80-5.40) m/uL Hgb 13.8 (11.4-16.0) gm/dL Hct 41.0 (34.0-46.0) % MCV 95.6 (80.0-100.0) fL MCH 32.1 (25.0-35.0) pg MCHC 33.5 (31.0-37.0) g/dL RDW 12.6 (11.5-15.5) % Plt Count 313 (150-450) k/uL MPV 7.4 Neutrophils % 55 % Lymphocytes % 32 % Monocytes % 7 % Eosinophils % 2 % Basophils % 1 % Neutrophils # 2.9 (1.3-7.7) k/uL Lymphocytes # 1.7 (1.0-4.8) k/uL Monocytes # 0.4 (0-1.0) k/uL Eosinophils # 0.1 (0-0.7) k/uL Basophils # 0.0 (0-0.2) k/uL PT 9.9 L (10.0-12.5) sec INR 0.9 (<1.2) APTT 25.9 (22.0-30.0) sec Sodium 141 (137-145) mmol/L Potassium 4.1 (3.5-5.1) mmol/L Chloride 108 H (98-107) mmol/L Carbon Dioxide 18 L (22-30) mmol/L Anion Gap 15 mmol/L BUN 13 (7-17) mg/dL Creatinine 0.69 (0.52-1.04) mg/dL Est GFR (CKD-EPI)AfAm >90 (>60 ml/min/1.73 sqM) Est GFR (CKD-EPI)NonAf >90 (>60 ml/min/1.73 sqM) Glucose 85 (74-99) mg/dL Calcium 9.3 (8.4-10.2) mg/dL Magnesium 2.1 (1.6-2.3) mg/dL Total Bilirubin 0.4 (0.2-1.3) mg/dL AST 34 (14-36) U/L ALT 24 (4-34) U/L Alkaline Phosphatase 99 (38-126) U/L Troponin I (0.000-0.034) ng/mL Total Protein 7.2 (6.3-8.2) g/dL Albumin 4.3 (3.5-5.0) g/dL 09/25/23 Range/Units 19:19 WBC (3.8-10.6) k/uL RBC (3.80-5.40) m/uL Hgb (11.4-16.0) gm/dL Hct (34.0-46.0) % MCV (80.0-100.0) fL MCH (25.0-35.0) pg MCHC (31.0-37.0) g/dL RDW (11.5-15.5) % Plt Count (150-450) k/uL MPV Neutrophils % % Lymphocytes % % Monocytes % % Eosinophils % % Basophils % % Neutrophils # (1.3-7.7) k/uL Lymphocytes # (1.0-4.8) k/uL Monocytes # (0-1.0) k/uL Eosinophils # (0-0.7) k/uL Basophils # (0-0.2) k/uL PT (10.0-12.5) sec INR (<1.2) APTT (22.0-30.0) sec Sodium (137-145) mmol/L Potassium (3.5-5.1) mmol/L Chloride (98-107) mmol/L Carbon Dioxide (22-30) mmol/L Anion Gap mmol/L BUN (7-17) mg/dL Creatinine (0.52-1.04) mg/dL Est GFR (CKD-EPI)AfAm (>60 ml/min/1.73 sqM) Est GFR (CKD-EPI)NonAf (>60 ml/min/1.73 sqM) Glucose (74-99) mg/dL Calcium (8.4-10.2) mg/dL Magnesium (1.6-2.3) mg/dL Total Bilirubin (0.2-1.3) mg/dL AST (14-36) U/L ALT (4-34) U/L Alkaline Phosphatase (38-126) U/L Troponin I <0.012 (0.000-0.034) ng/mL Total Protein (6.3-8.2) g/dL Albumin (3.5-5.0) g/dL Disposition Clinical Impression: Left against medical advice Disposition: LEFT AGAINST MEDICAL ADVICE Is patient prescribed a controlled substance at d/c from ED?: No Referrals: Ekaterina Girard MD [Primary Care Provider] - 1-2 days
--- NOTE | 2023-09-25 21:20 | XR ---
EXAMINATION TYPE: XR chest 2V DATE OF EXAM: 09/25/2023 7:23 PM CLINICAL INDICATION:Female, 63 years old with history of Chest Pain; [facility] COMPARISON: None TECHNIQUE: XR chest 2V. Frontal PA and lateral views of the chest. FINDINGS: Lines/Tubes: None. Heart/mediastinum: Heart size is normal. Mediastinal silhouette is otherwise unremarkable. Pulmonary vascularity: Not increased, Lungs/Pleura: There is no evidence of pleural effusion, focal consolidation, or pneumothorax. Musculoskeletal: No acute osseous abnormality demonstrated in the limits of the exam. Mild degenerat zena changes with mild apex right curvature of the lower thoracic spine. Other findings: None. IMPRESSION: No acute cardiopulmonary abnormality.
== END 2023-09-25 21:33 | disposition left against medical advice (07) ==
LOC: EC 18:18
DX: Z53.29 Procedure and treatment not carried out because of patient's decision for other reasons (principal); I10 Essential (primary) hypertension; M19.90 Unspecified osteoarthritis, unspecified site; F17.200 Nicotine dependence, unspecified, uncomplicated; F12.90 Cannabis use, unspecified, uncomplicated; Z79.1 Long term (current) use of non-steroidal anti-inflammatories (NSAID); Z79.899 Other long term (current) drug therapy; Z88.0 Allergy status to penicillin; Z88.6 Allergy status to analgesic agent
CPT/HCPCS: 36415; 71046; 80053; 83735; 84484; 85025; 85610; 85730; 93005; 99285